=== PATIENT | male | born 1945 | race Caucasian/White ===

== ENCOUNTER 2016-12-12 10:01 | Inpatient (IN) ==
[2016-12-12] MEDS ORDERED: NS 1,000 ML IV ONE ×2 (10:14→10:40)
--- NOTE | 2016-12-12 10:27 | PROVIDER DOCUMENTATION ---
HPI-General Adult - General Chief Complaint: Weakness Stated Complaint: COLD SX Time Seen by Provider: 12/12/16 10:10 Source: patient Unable to obtain history due to:: altered Allergies/Adverse Reactions: Patient Allergies Allergy/AdvReac Type Severity Reaction Status Date / Time Penicillins Allergy SWELLING Verified 09/20/16 08:27 Home Medications: Home Medication List Medication Instructions Recorded Confirmed Last Taken Type Insulin Aspart [Novolog] 1 unit SQ DIRECTED PRN PRN 09/20/16 12/12/16 History Insulin Detemir [Levemir] 80 units SQ WSUPPER 09/20/16 12/12/16 09/20/16 History Levothyroxine [Synthroid] 88 mcg PO DAILY 09/20/16 12/12/16 12/11/16 History Warfarin Sodium [Coumadin] 7.5 mg PO DIRECTED 12/12/16 12/12/16 12/11/16 History Warfarin Sodium [Coumadin] 10 mg PO DIRECTED 12/12/16 12/12/16 12/10/16 History - History of Present Illness -Gen Adult Nature of Presenting Problems: pt presents with SO with 5 day history of worsening generlized weakness, confusion. He started vomiting yesterday. They are both very poor historians. It is unclear how compliant he is with his insulin and coumadin. He denies chest pain, headache, fever, cough, abd pain. Location of Pain/Injury: reports: none Pain Radiation: reports: no radiation Associated Symptoms: reports: fatigue, nausea, vomiting Similar Symptoms Previously?: No Recently seen or treated by another doctor?: No Review of Systems - Adult - REVIEW OF SYSTEMS - ADULT ROS:: limited per condition Constitutional: reports: fatique, weight loss. denies: fever Eyes: reports: no symptoms reported. denies: decreased vision, blurred vision Ears, Nose, Mouth & Throat: reports: no symptoms reported. denies: ear pain, epistaxis Cardiovascular: reports: no symptoms reported. denies: chest pain, syncope Respiratory: reports: no symptoms reported. denies: cough, hemoptysis, shortness of breath Gastrointestinal: reports: no symptoms reported, nausea, vomiting. denies: abdominal pain, diarrhea Genitourinary: reports: no symptoms reported. denies: dysuria Musculoskeletal: reports: no symptoms reported. denies: back pain Integumentary: reports: no symptoms reported. denies: rash Neurological: reports: dizziness/vertigo All Other Systems: Reviewed and Negative Past History - Adult - PAST MEDICAL HISTORY-ADULT Review of Records: reports: Old Records Reviewed, Nursing Assessment Review, Medications Reviewed, Social history reviewed & non-contributory. Major Childhood Illnesses: reports: denies history Cardiovascular: reports: denies history Respiratory: reports: denies history Gastrointestinal: reports: denies history Obstetrical/Gynecological: reports: denies history Genitourinary: reports: denies history Musculoskeletal: reports: denies history Neurological: reports: denies history Endocrine/Immune: reports: Diabetes Other Conditions: reports: denies history Additional History: DVT - IMMUNIZATION STATUS Childhood Immunizations: See Nurse Assessment Flu Vaccine: See Nurse Assessment - FAMILY HISTORY Family History: reviewed, not pertinent Physical Exam-General - PHYSICAL EXAM-ADULT Initial Vital Signs Reviewed: Yes - CONSTITUTIONAL General Appearance: alert, mild distress - EYES Eyes: PERRL/EOMI, pink conjunctivae - HEAD, EARS, NOSE, MOUTH & THROAT HENMT: normocephalic/atraumatic, other (dry membranes) - NECK Neck: non-tender, full range of motion - RESPIRATORY Respiratory: chest non-tender, lungs clear, increased rate - CARDIOVASCULAR Cardiovascular: normal peripheral pulses, tachycardia - GASTROINTESTINAL (ABDOMEN) Abdominal Exam: normal bowel sounds, non tender, soft, no organomegaly, no pulsatile mass. negative: distended, guarding - LYMPHATIC Lymphatic: no adenopathy, axilla node tender - MUSCULOSKELETAL Back Exam: normal inspection, no CVA tenderness Extremity: normal range of motion, non-tender, no calf tenderness Peripheral Pulses: radial (R): 2+ - SKIN Integumentary: normal color, normal turgor, warm/dry - NEUROLOGIC Neurologic: head wood grinder II-XII nml as tested, grossly normal, other (slow to respond.). negative: facial droop, focal weakness, motor weakness - PSYCHIATRIC Psych/Mental Status: oriented x 3 Progress - PLAN OF CARE/RESULTS Progress/Plan/Lab Results: Vital Signs - 8 hr 12/12/16 10:04 Temperature 97.5 F L Pulse Rate 123 H Respiratory Rate 20 Blood Pressure 175/93 O2 Sat by Pulse Oximetry 100 Laboratory Results - last 24 hr 12/12/16 10:18 POC Glucose 398 H D Orders Category Date Time Status Cardiac Monitoring DIRECTED Care 12/12/16 10:14 Active Oxygen Therapy- ED Nursing DIRECTED Care 12/12/16 10:14 Active Saline Loc NOW Care 12/12/16 10:14 Active CHEST-PORTABLE [RAD] Stat Exams 12/12/16 10:14 Ordered ABG [RESP] Routine Lab 12/12/16 10:14 Ordered CBC WITH ELECTRONIC DIFF [HEME] Stat Lab 12/12/16 10:14 Ordered CK PROFILE [SP CHEM] Stat Lab 12/12/16 10:14 Ordered COMPREHENSIVE METABOLIC PANEL [CHEM] Stat Lab 12/12/16 10:14 Ordered MAGNESIUM [CHEM] Stat Lab 12/12/16 10:14 Ordered PRO B-NATRIURETIC PEPTIDE Stat Lab 12/12/16 10:[address] Or[address]IME WITH INR PL [COAG] Stat Lab 12/12/16 10:[address] [COAG] Stat Lab 12/12/16 10:14 Ordered TROPONIN T Stat Lab 12/12/16 10:14 Ordered UA NIMS W/REFLEX CULT [URINALYSIS] Stat Lab 12/12/16 10:14 Uncollected 0.9% Sodium Chloride Inj [Ns] 1,000 ml Med 12/12/16 10:14 Active IV 999 mls/hr EKG [EKG] Stat Ther 12/12/16 10:14 Ordered pt complained of brief episode of cp here but gone now. Result Diagrams: 12/12/16 10:25 12/12/16 10:25 - XRAY 1 XRAY Study: Chest Impression: See EMR Report XRAY Interpretation: cxr ap NAF - CONSULTS/PCP/HOSPITALIST Notification #1 *Consult/PCP/Hospitalist*: vijaya Time Discussed: 12:03 Consult Disposition: Admit Departure - Departure Date of Disposition Decision: 12/12/16 Time of Disposition Decision: 12:04 DIAGNOSIS: DKA (diabetic ketoacidoses) Disposition: ADMITTED INPATIENT 09 Certified Medical Emergency: Emergent Condition: Fair - Critical Care Note This patient required my direct & personal management of CC.: Yes Attestation - Physician/ RIZWAN Attestation Patient care was provided by Advanced Practice Provider:: Yes Advanced Practice Provider:: Efrem Vilchis Advanced Practice Provider documentation review:: The Mid-level provider documentation, treatment plan and medical decision making was reviewed by the physician who agrees with all treatment and medical decision making by the P.
[2016-12-12 10:29] LABS: MANUAL DIFF NEEDED? NO
[2016-12-12 10:32] LABS: BE -27.1 mmoll (-3.0-3.0); BLOOD TYPE ARTERIAL; DRAW SITE L RADIAL; METHB 0.7 % (0.0-1.5); O2(CT) 23.2 mL/dL (15.0-23.0); PO2(98.6) 133 mmHg (60-100); SAMPLE BLOOD; SAO2 98.5 % (95.0-100.0)
[2016-12-12 10:35] LABS: pH(98.6) 6.99 (7.35-7.45)
[2016-12-12 10:36] LABS: ALLEN TEST YES; MODALITY ROOM AIR; PCO2(98.6) 10 mmHg (35-45)
[2016-12-12] MEDS ORDERED: SODIUM BICARBONATE 8.4% IV PUSH ONE (10:36)
--- NOTE | 2016-12-12 10:44 | EKG Report ---
Test Performed on : 12/12/2016 10:38:12 AM Test Reason : WEAKNESS Blood Pressure : / mmHG Vent. Rate : 120 BPM Atrial Rate : 120 BPM P-R Int : 130 ms QRS Dur : 080 ms QT Int : 352 ms P-R-T Axes : 049 032 045 degrees QTc Int : 497 ms Sinus tachycardia. Possible Left atrial enlargement Nonspecific ST and T wave abnormality Abnormal ECG When compared with ECG of 20-SEP-2016 09:20, premature ventricular complexes. are no longer present ST now depressed in Anterior leads T wave inversion now evident in Lateral leads Unconfirmed Result
[2016-12-12] MEDS ORDERED: HUMULIN R (PARKWAY) 100 UNITS in NS 100 ML IV SCH (10:45)
[2016-12-12 10:53] LABS: BASO% 0.2 % (0.0-0.8); EOS# 0.03 X1000 (0.0-0.7); EOS% 0.2 % (0.0-10.0); HEMOGLOBIN 17.2 g/dL (14.0-18.0); IMM GRAN# 0.11 X1000 (0.0-0.04); IMM GRAN% 0.9 % (0.0-0.5); LYMPH% 10.3 % (20.5-51.1); MCHC 32.5 g/dL (33-37); MCV 86.2 FL (81-99); MONO# 0.44 X1000 (0.11-0.59); MONO% 3.5 % (1.7-9.3); MPV 10.8 FL (7.4-10.4); NEUT% 84.9 % (42.2-75.2); PLT 366 X1000 (130-400); RBC 6.15 XMIL (4.7-6.1)
--- NOTE | 2016-12-12 10:53 | Diag Imaging Result Doc PS360 ---
EXAM: CHEST-PORTABLE HISTORY: dyspnea TECHNIQUE: Portable AP COMPARISON: 09/20/2016 FINDINGS: The lungs are well expanded. The heart is not enlarged. The vessels are not distended. No pneumonia. No pleural effusions identified. IMPRESSION: Negative chest. Electronically signed by Chris Nieves 12/12/2016 10:50 AM
[2016-12-12] MEDS ORDERED: ASPIRIN PO ONE (10:55)
[2016-12-12] MEDS ORDERED: ASPIRIN ONE (10:56)
--- NOTE | 2016-12-12 10:59 | ED EKG INTERP ---
This chart was entered by Ana Cristina Pedroza Scribe, acting as scribe for Joan Elizondo MD. EKG Interpretation - EKG Time of EKG reading by physician:: 10:38 EKG Read and Signed by:: Joan Elizondo EKG Interpretation (*Must complete 3 of following elements*): Abnormal Rate: 120 Rhythm: sinus tachycardia DE Interval: prolonged ST Wave: non-specific ST changes Comments: possible L atrial enlargement; nonspecific ST and T wave abnormality This chart was documented by the indicated scribe, (Ana Cristina Pedroza Scribe) and accurately reflects the services I performed and decisions made by me, Joan Elizondo MD, as attested by the provider's signature.
[2016-12-12] MEDS ORDERED: ZOFRAN IV ONE (11:11)
[2016-12-12 11:19] LABS: INR 3.81 (0.86-1.15); PROTIME 37.2 Seconds (12.1-15.5)
[2016-12-12 11:26] LABS: ALBUMIN 5.4 g/dL (3.5-5.0); CALCIUM 9.8 mg/dL (8.8-10.2); MAGNESIUM 2.4 mg/dL (1.5-2.7); POTASSIUM 6.1 mmol/L (3.5-5.1); TOTAL BILIRUBIN 0.3 mg/dL (0.20-1.00)
[2016-12-12] MEDS ORDERED: HUMULIN R IV ONE (11:29)
[2016-12-12] MEDS ORDERED: HUMULIN R (PARKWAY) ONE (11:36)
[2016-12-12 12:22] LABS: URINE CULTURE PL NEEDED? NO
[2016-12-12] MEDS ORDERED: NS 1,000 ML IV SCH (12:28)
[2016-12-12 12:37] LABS: BILIRUBIN URINE NEGATIVE (NEGATIVE); BLOOD URINE 1+ (NEGATIVE); CLARITY CLEAR (CLEAR); COLOR YELLOW; LEUKOCYTES URINE NEGATIVE (NEGATIVE); NITRITE URINE NEGATIVE (NEGATIVE); PROTEIN URINE TRACE mg/dL (NEGATIVE); UROBILINOGEN URINE NORMAL
[2016-12-12 12:38] LABS: URINE EPITHELIAL CELLS <10 /HPF (<10); URINE RBC <10 /HPF (<10); URINE SOURCE CLEAN CATCH
[2016-12-12] MEDS ORDERED: SODIUM PHOSPHATE 30 MMOL in D5W 250 ML IV PRN (13:58)
[2016-12-12] MEDS ORDERED: HUMULIN R 100 UNIT in NS 99 ML IV SCH (13:58)
[2016-12-12] MEDS ORDERED: D50W SYRINGE IV PRN (13:58)
[2016-12-12 14:18] LABS: BE -24.4 mmoll (-3.0-3.0); BLOOD TYPE ARTERIAL; DRAW SITE L RADIAL; O2(CT) 21.2 mL/dL (15.0-23.0); PO2(98.6) 146 mmHg (60-100); SAMPLE BLOOD; SAO2 98.7 % (95.0-100.0); THB 15.4 g/dL (11.5-17.4)
[2016-12-12 14:29] LABS: pH(98.6) 7.07 (7.35-7.45)
[2016-12-12 14:32] LABS: MODALITY CANNULA; PCO2(98.6) 12 mmHg (35-45)
[2016-12-12 14:33] LABS: ALLEN TEST YES
[2016-12-12 14:39] LABS: HEMATOCRIT 47.8 % (42.0-52.0); HEMOGLOBIN 15.1 g/dL (14.0-18.0); MCH 28.4 PG (27-31); MCHC 31.6 g/dL (33-37); RBC 5.31 XMIL (4.7-6.1)
[2016-12-12] MEDS: NS 1,000 ML IV SCH ×3 (14:49→23:23)
[2016-12-12 14:51] LABS: CALCIUM 8.8 mg/dL (8.8-10.2); MAGNESIUM 2.1 mg/dL (1.5-2.7); POTASSIUM 5.1 mmol/L (3.5-5.1)
[2016-12-12] MEDS ORDERED: M.V.I.-12 10 ML, FOLIC ACID 1 MG, MAGNESIUM SULFATE 1 GM, THIAMINE 100 MG in NS 1,000 ML IV ONE (15:30)
[2016-12-12 15:45] LABS: ALBUMIN 5.5 g/dL (3.5-5.0)
[2016-12-12 18:23] LABS: CALCIUM 8.9 mg/dL (8.8-10.2); MAGNESIUM 2.1 mg/dL (1.5-2.7); POTASSIUM 4.7 mmol/L (3.5-5.1)
[2016-12-12 22:37] LABS: AGAP 19; BUN 22 mg/dL (8-22); CALCIUM 8.4 mg/dL (8.8-10.2); CHLORIDE 111 mmol/L (98-107); COSMO 289; POTASSIUM 4.3 mmol/L (3.5-5.1); SODIUM 140 mmol/L (136-145); TCO2 10 mmol/L (25-35)
[2016-12-13 03:22] LABS: AGAP 15; BUN 20 mg/dL (8-22); CALCIUM 8.2 mg/dL (8.8-10.2); CHLORIDE 116 mmol/L (98-107); COSMO 294; POTASSIUM 3.8 mmol/L (3.5-5.1); SODIUM 143 mmol/L (136-145); TCO2 12 mmol/L (25-35)
[2016-12-13] MEDS: NS 1,000 ML IV SCH ×7 (04:17→21:58)
[2016-12-13] MEDS: SYNTHROID PO SCH (06:05)
[2016-12-13 06:07] LABS: BE -11.1 mmoll (-3.0-3.0); BLOOD TYPE ARTERIAL; DRAW SITE R BRACHIAL; METHB 1.1 % (0.0-1.5); PCO2(98.6) 28 mmHg (35-45); PO2(98.6) 92 mmHg (60-100); SAMPLE BLOOD; THB 13.3 g/dL (11.5-17.4)
[2016-12-13 06:09] LABS: MODALITY CANNULA
[2016-12-13 06:35] LABS: AGAP 15; BUN 19 mg/dL (8-22); CALCIUM 8.2 mg/dL (8.8-10.2); CHLORIDE 113 mmol/L (98-107); COSMO 290; POTASSIUM 3.6 mmol/L (3.5-5.1); SODIUM 141 mmol/L (136-145); TCO2 14 mmol/L (25-35)
--- NOTE | 2016-12-13 09:04 | PROGRESS NOTE ---
DATE: 12/13/2016 SUBJECTIVE: The patient states he is starting to feel a little bit better. He is having less nausea. He denies any vomiting and denies abdominal pain. Denies any fevers or chills. PHYSICAL: Temperature 97, pulse 103, respiratory 17, BP 126/74, sat 99% on room air. General: The patient is awake, alert, currently in no real respiratory distress. He is pleasant to talk with. Neck supple. CV: Regular rate. Chest: Relatively clear. Abdomen: Soft, nondistended, nontender. Extremities: Moves all extremities. LABORATORY DATA: Chloride 113, bicarb 14 which is improved from 5 on admission. Glucose 213, phosphorus 1.5, calcium 8.2, creatinine 1.0 m. ASSESSMENT: 1. Diabetic ketoacidosis. 2. Hypophosphatemia. 3. Hypocalcemia. 4. Leukocytosis. 5. Nausea and vomiting. 6. Hypothyroidism. PLAN: We will continue to keep on clear liquids as tolerated. We will continue insulin drip until his carbon dioxide is greater than 18 and then we will advance diet. Further orders as needed. Discussed with patient the perils of starvation ketosis, which I do believe is what triggered his diabetic ketoacidosis. Patient had been intentionally only drinking liquids with an attempt to lose weight. cc: Chong Brown MD
[2016-12-13 11:22] LABS: AGAP 15; BUN 17 mg/dL (8-22); CALCIUM 8.4 mg/dL (8.8-10.2); CHLORIDE 113 mmol/L (98-107); COSMO 289; POTASSIUM 3.6 mmol/L (3.5-5.1); SODIUM 141 mmol/L (136-145); TCO2 13 mmol/L (25-35)
[2016-12-13 14:02] LABS: AGAP 13; BUN 14 mg/dL (8-22); CALCIUM 7.9 mg/dL (8.8-10.2); CHLORIDE 109 mmol/L (98-107); COSMO 286; MAGNESIUM 1.8 mg/dL (1.5-2.7); POTASSIUM 3.4 mmol/L (3.5-5.1); SODIUM 137 mmol/L (136-145); TCO2 15 mmol/L (25-35)
[2016-12-13 18:08] LABS: AGAP 13; BUN 10 mg/dL (8-22); CHLORIDE 110 mmol/L (98-107); COSMO 282; MAGNESIUM 1.8 mg/dL (1.5-2.7); POTASSIUM 3.3 mmol/L (3.5-5.1); SODIUM 138 mmol/L (136-145); TCO2 15 mmol/L (25-35)
[2016-12-13 21:47] LABS: AGAP 12; BUN 8 mg/dL (8-22); CALCIUM 7.9 mg/dL (8.8-10.2); CHLORIDE 110 mmol/L (98-107); COSMO 280; MAGNESIUM 1.7 mg/dL (1.5-2.7); POTASSIUM 3.2 mmol/L (3.5-5.1); SODIUM 138 mmol/L (136-145); TCO2 16 mmol/L (25-35)
[2016-12-13] MEDS: MAGNESIUM SULFATE 2 GM/S.W.I. 2 GM/50 ML IVPB IV PRN (21:58)
[2016-12-14 01:23] LABS: AGAP 13; BUN 6 mg/dL (8-22); CALCIUM 7.6 mg/dL (8.8-10.2); CHLORIDE 105 mmol/L (98-107); COSMO 273; POTASSIUM 2.8 mmol/L (3.5-5.1); SODIUM 135 mmol/L (136-145); TCO2 16 mmol/L (25-35)
[2016-12-14] MEDS: NS 1,000 ML IV SCH ×9 (01:28→20:15)
[2016-12-14] MEDS: SYNTHROID PO SCH (06:17)
[2016-12-14 06:39] LABS: AGAP 12; BUN 6 mg/dL (8-22); CALCIUM 7.8 mg/dL (8.8-10.2); CHLORIDE 110 mmol/L (98-107); COSMO 280; MAGNESIUM 1.9 mg/dL (1.5-2.7); POTASSIUM 2.9 mmol/L (3.5-5.1); SODIUM 139 mmol/L (136-145); TCO2 17 mmol/L (25-35)
[2016-12-14 06:42] LABS: HEMATOCRIT 36.2 % (42.0-52.0); HEMOGLOBIN 12.2 g/dL (14.0-18.0); MCH 28.6 PG (27-31); MCHC 33.7 g/dL (33-37); MCV 84.8 FL (81-99); MPV 10.9 FL (7.4-10.4); RBC 4.27 XMIL (4.7-6.1)
[2016-12-14 09:13] LABS: AGAP 11; BUN 4 mg/dL (8-22); CALCIUM 7.9 mg/dL (8.8-10.2); CHLORIDE 108 mmol/L (98-107); COSMO 277; MAGNESIUM 1.7 mg/dL (1.5-2.7); POTASSIUM 2.7 mmol/L (3.5-5.1); SODIUM 138 mmol/L (136-145); TCO2 19 mmol/L (25-35)
[2016-12-14 13:03] LABS: AGAP 12; BUN 3 mg/dL (8-22); CALCIUM 7.7 mg/dL (8.8-10.2); CHLORIDE 108 mmol/L (98-107); COSMO 277; MAGNESIUM 1.7 mg/dL (1.5-2.7); POTASSIUM 2.7 mmol/L (3.5-5.1); SODIUM 138 mmol/L (136-145); TCO2 18 mmol/L (25-35)
[2016-12-14] MEDS: HUMALOG DOSE (PARKWAY) SUBQ SCH ×2 (15:00→20:32)
--- NOTE | 2016-12-14 15:12 | HISTORY AND PHYSICAL ---
CHIEF COMPLAINT: Weakness and confusion and vomiting. HISTORY OF PRESENT ILLNESS: This is a 71-year-old male with a history of hyperlipidemia, COPD and diabetes mellitus who presents to the emergency room with his who states the patient has had increasing weakness and confusion over the last 5 days and in the last 24 hours he started vomiting. She is unsure about his compliance to medicines. She does state that he decided that he needed to lose weight and he started taking in just liquids. It has been about 6 weeks ago some days having only juice and water. She is unaware of him eating any solid food during this time. He is noted to have a blood sugar of 589 with a potassium of 6.1, a CO2 of 5. He was given 2 L of saline as well as bicarb with an insulin drip initiated in the emergency room. He is being admitted to ICU for further evaluation and treatment. PAST MEDICAL HISTORY: Diabetes mellitus, hyperlipidemia, COPD, prior DVT and PE. PAST SURGICAL HISTORY: Finger surgery. SOCIAL HISTORY: Denies alcohol, tobacco or illicit drug use. He does live at home with his . ALLERGIES: Penicillin which causes swelling. HOME MEDICATIONS: Warfarin 7.5 and 10 mg alternating, Synthroid 88 mcg daily, Levemir 80 units daily with supper, NovoLog 1 unit subcu as directed. REVIEW OF SYSTEMS: Unable to obtain from the patient. PHYSICAL EXAMINATION: GENERAL: This is a 71-year-old male who is lying in the bed in mild distress. HEENT: Head is normocephalic, atraumatic. Pupils are equal, round, react to light. EOMs are intact. Sclerae anicteric. Mucous membranes are dry. NECK: Supple with trachea midline. CARDIOVASCULAR: Regular rate and rhythm. He is tachycardic. S1 and S2 appreciated. PULMONARY: Breath sounds are clear with Kussmaul breathing. Chest rise and fall is symmetrical. GASTROINTESTINAL: Abdomen soft, nontender, nondistended with bowel sounds in all 4 quadrants. MUSCULOSKELETAL: Good range of motion of joints. EXTREMITIES: No clubbing, cyanosis, or edema. Pulses are palpable x4. NEUROLOGIC: He is confused. Speech is slurred. DIAGNOSTICS: WBC is 12.5 with hemoglobin 17.2, hematocrit 53 and platelets of 366,000. INR is 3.8. ABGs pH is 6.99 with a pCO2 of 10, PO2 of 133 and bicarb of 3.7. Sodium is 135, potassium 6.1, CO2 5, BUN 28, creatinine 1.6 with a glucose of 589. ASSESSMENT AND PLAN: 1. Diabetic ketoacidosis. 2. Starvation ketosis. 3. Leukocytosis. 4. Nausea and vomiting. 5. Confusion. PLAN: The patient will be admitted to ICU. He will be NPO at present with neuro checks. Will continue IV hydration as well as an insulin drip and follow per protocol. We will monitor electrolytes and replete as appropriate. Will hold him NPO until CO2 gets up greater than 18 and we can start with liquids and advance his diet. Further treatments pending hospital course. Dictated by ELENA Gupta for Chong Brown MD cc: ELENA Gupta MD
[2016-12-14] MEDS: MAGNESIUM SULFATE 2 GM/S.W.I. 2 GM/50 ML IVPB IV PRN (17:09)
[2016-12-14 18:48] LABS: INR 1.7 (0.86-1.15); PROTIME 20.2 Seconds (12.1-15.5)
[2016-12-14] MEDS: COUMADIN PO SCH (20:32)
[2016-12-15] MEDS: NS 1,000 ML IV SCH ×2 (00:58→06:07)
[2016-12-15] MEDS: SYNTHROID PO SCH (06:06)
[2016-12-15] MEDS: HUMALOG DOSE (PARKWAY) SUBQ SCH ×2 (06:07→12:11)
[2016-12-15 06:29] LABS: INR 1.61 (0.86-1.15); PROTIME 19.4 Seconds (12.1-15.5)
[2016-12-15 06:42] LABS: AGAP 17; BUN 5 mg/dL (8-22); CALCIUM 8.1 mg/dL (8.8-10.2); CHLORIDE 102 mmol/L (98-107); COSMO 273; MAGNESIUM 1.9 mg/dL (1.5-2.7); POTASSIUM 3.1 mmol/L (3.5-5.1); SODIUM 133 mmol/L (136-145); TCO2 14 mmol/L (25-35)
[2016-12-15] MEDS ORDERED: KLOR-CON PO ONE (11:28)
--- NOTE | 2016-12-15 12:22 | PROGRESS NOTE ---
DATE: 12/14/2016 SUBJECTIVE: Patient is starting to feel a bit better. He is still having some nausea and vomiting. Denies any blood in his stool. Denies any dysuria, frequency, or urgency. OBJECTIVE: Vital Signs: Reviewed and stable. HEENT: Normocephalic, atraumatic. Neck: Supple. Cardiovascular: Regular rate. Chest: Relatively clear. Abdomen: Soft. Extremities: Moves all extremities. Neurologic: No changes. Skin: Warm and dry. No rashes. LABORATORIES: INR is 1.7. Hemoglobin and hematocrit 12 and 36. Potassium 2.7, glucose 317, phosphorus 1.3. ASSESSMENT: 1. Diabetic ketoacidosis. 2. Hypophosphatemia. 3. Hypocalcemia. 4. Hypokalemia. PLAN: We will continue patient on insulin drip today. We will continue to advance his diet as tolerated. He certainly is exhibiting some starvation ketosis of his own volition, as he has refused to eat at home. He has only been drinking. Leukocytosis has improved. His nausea and vomiting has improved. His confusion has resolved and he is back to his baseline mental status. We will continue to follow. Further orders as needed. cc: Chong Brown MD
[2016-12-15] MEDS ORDERED: LEVEMIR INSULIN *HA SUBQ SCH (17:00)
[2016-12-15 18:32] LABS: AGAP 19; ALBUMIN 3.4 g/dL (3.5-5.0); ALKALINE PHOSPHATASE 80 U/L (32-122); BUN 8 mg/dL (8-22); CALCIUM 8.4 mg/dL (8.8-10.2); CHLORIDE 103 mmol/L (98-107); COSMO 287; GOT 13 U/L (10-34); GPT 10 U/L (10-44); POTASSIUM 3.6 mmol/L (3.5-5.1); SODIUM 136 mmol/L (136-145); TCO2 14 mmol/L (25-35); TOTAL PROTEIN 5.5 g/dL (6.3-8.3)
--- NOTE | 2016-12-15 18:42 | PROGRESS NOTE ---
DATE: 12/15/2016 SUBJECTIVE: The patient notes that he is starting to feel better. He is starting to eat and drink better. Denies any chest pain, palpitations. Denies any fevers or chills currently. PHYSICAL: Temp 98.2 degrees, pulse 86-106, respiratory 25, BP 138/99, sat 95% on room air.General: Patient is awake, alert. He is currently in no respiratory distress. Appears back to his baseline mentation. HEENT: Normocephalic, atraumatic. MARIBETH. Neck: Supple. CV: Regular rate. Chest: Clear. Abdomen: Soft, nondistended, nontender. No masses. Extremities: Moves all extremities. Neurologic: No changes. LABS: Sodium 133, potassium 3.1, glucose 264 .phosphorus improved to 2.4. ASSESSMENT: 1. DKA, currently improving. Will stop his insulin drip. Will place him on a sliding scale insulin as well as Levemir. We will continue to follow. We will restart his home medications of Coumadin and levothyroxine. We will recheck his labs in the a.m. Hopefully home soon. His phosphorus is continuing to improve. INR still low 1.6 but he has been off of his Coumadin recently. 2. Hypokalemia. Will replace as well. cc: Chong Brown MD
[2016-12-15] MEDS ORDERED: HUMALOG DOSE (PARKWAY) SUBQ SCH (21:00)
[2016-12-15] MEDS ORDERED: D50W SYRINGE IV PRN (21:01)
[2016-12-15] MEDS ORDERED: HUMULIN R (PARKWAY) 100 UNITS in NS 100 ML IV SCH (21:01)
[2016-12-15] MEDS ORDERED: KLOR-CON PO PRN (21:06)
[2016-12-15] MEDS ORDERED: MAGNESIUM SULFATE 2 GM/S.W.I. 2 GM/50 ML IVPB IV PRN (21:06)
[2016-12-15] MEDS ORDERED: SODIUM PHOSPHATE 30 MMOL in D5W 250 ML IV PRN (21:06)
[2016-12-15] MEDS ORDERED: NS 1,000 ML IV SCH (21:06)
[2016-12-15] MEDS ORDERED: NS 100 ML ONE (21:07)
[2016-12-15] MEDS: COUMADIN PO SCH (21:16)
[2016-12-15 22:28] LABS: AGAP 19; BUN 10 mg/dL (8-22); CALCIUM 8.5 mg/dL (8.8-10.2); CHLORIDE 105 mmol/L (98-107); COSMO 287; MAGNESIUM 1.7 mg/dL (1.5-2.7); POTASSIUM 3.6 mmol/L (3.5-5.1); SODIUM 137 mmol/L (136-145); TCO2 14 mmol/L (25-35)
[2016-12-16 02:28] LABS: AGAP 17; BUN 9 mg/dL (8-22); CALCIUM 8.6 mg/dL (8.8-10.2); CHLORIDE 106 mmol/L (98-107); COSMO 282; MAGNESIUM 2.2 mg/dL (1.5-2.7); POTASSIUM 3.1 mmol/L (3.5-5.1); SODIUM 140 mmol/L (136-145); TCO2 17 mmol/L (25-35)
[2016-12-16] MEDS: KLOR-CON PO PRN ×2 (02:40→08:02)
[2016-12-16 06:22] LABS: HEMATOCRIT 38.7 % (42.0-52.0); HEMOGLOBIN 13.4 g/dL (14.0-18.0); MCH 28.8 PG (27-31); MCHC 34.6 g/dL (33-37); MCV 83.2 FL (81-99); MPV 10.4 FL (7.4-10.4); RBC 4.65 XMIL (4.7-6.1)
[2016-12-16 06:25] LABS: INR 1.88 (0.86-1.15); PROTIME 21.8 Seconds (12.1-15.5)
[2016-12-16] MEDS: SYNTHROID PO SCH (06:26)
[2016-12-16 06:34] LABS: HEMOGLOBIN A1C 10.6 % (4.8-6.0)
[2016-12-16 06:58] LABS: AGAP 14; ALBUMIN 3.6 g/dL (3.5-5.0); ALKALINE PHOSPHATASE 74 U/L (32-122); BUN 8 mg/dL (8-22); CALCIUM 8.8 mg/dL (8.8-10.2); CHLORIDE 108 mmol/L (98-107); COSMO 280; GOT 13 U/L (10-34); GPT 11 U/L (10-44); MAGNESIUM 1.9 mg/dL (1.5-2.7); POTASSIUM 3.3 mmol/L (3.5-5.1); SODIUM 141 mmol/L (136-145); TCO2 19 mmol/L (25-35); TOTAL PROTEIN 6.8 g/dL (6.3-8.3)
[2016-12-16] MEDS ORDERED: SYNTHROID PO ONE ×2 (09:45→11:15)
[2016-12-16] MEDS ORDERED: LANTUS INSULIN (PARKWAY) SUBQ SCH ×2 (09:45→11:15)
--- NOTE | 2016-12-16 14:01 | PROGRESS NOTE ---
DATE: 12/16/2016 SUBJECTIVE: Patient is starting to feel better. Denies any current nausea, vomiting. Denies any abdominal pain. States that he is ready to start eating. OBJECTIVE: Vital signs: Temperature 97, pulse 80, respiratory 18, BP 155/95, saturation 97% on room air. General: Patient is awake, alert, oriented. He is currently in no real respiratory distress. He is lying flat in the bed. HEENT: Normocephalic, atraumatic. MARIBETH. Neck: Supple. CV: Regular rate. Chest: Clear. Abdomen: Soft. Extremities: Moves all extremities. Neurologic: No focal changes. LABS: CBC normal. INR 1.8. Potassium 3.1. Phosphorus 2.0. TSH 6.72. ASSESSMENT: 1. Diabetic ketoacidosis. Appears resolved. His gap has closed. Bicarb has returned to normal. Will stop his insulin drip. Will place him on Lantus this a.m. and will follow. He was taking 80 units at home. We will decrease to 30 units twice a day. 2. Hypothyroidism. Will increase his Synthroid. 3. Medical noncompliance. His INR is low. 4. We will increase his Coumadin. Certainly suspect what he is actually taking at home as his INR has frequently bounced from mid 1s to upper 3s on each test at home. We will advance his diet and continue to follow. cc: Chong Brown MD
[2016-12-16 15:06] LABS: AGAP 13; BUN 9 mg/dL (8-22); CALCIUM 8.6 mg/dL (8.8-10.2); CHLORIDE 104 mmol/L (98-107); COSMO 282; MAGNESIUM 1.6 mg/dL (1.5-2.7); POTASSIUM 3.8 mmol/L (3.5-5.1); SODIUM 136 mmol/L (136-145); TCO2 20 mmol/L (25-35)
[2016-12-16] MEDS: HUMALOG DOSE (PARKWAY) SUBQ SCH ×2 (16:16→21:21)
[2016-12-16] MEDS ORDERED: COUMADIN PO SCH (21:00)
[2016-12-16] MEDS: LANTUS INSULIN (PARKWAY) SUBQ SCH (21:22)
[2016-12-17 04:37] LABS: HEMATOCRIT 37.3 % (42.0-52.0); HEMOGLOBIN 12.5 g/dL (14.0-18.0); MCH 28.2 PG (27-31); MCHC 33.5 g/dL (33-37); MPV 10.5 FL (7.4-10.4); RBC 4.44 XMIL (4.7-6.1)
[2016-12-17 04:40] LABS: INR 2.15 (0.86-1.15); PROTIME 24.1 Seconds (12.1-15.5)
[2016-12-17 05:16] LABS: AGAP 11; BUN 8 mg/dL (8-22); CALCIUM 9.1 mg/dL (8.8-10.2); CHLORIDE 102 mmol/L (98-107); COSMO 277; MAGNESIUM 1.5 mg/dL (1.5-2.7); POTASSIUM 3.4 mmol/L (3.5-5.1); SODIUM 137 mmol/L (136-145); TCO2 24 mmol/L (25-35)
[2016-12-17] MEDS: HUMALOG DOSE (PARKWAY) SUBQ SCH (06:24)
[2016-12-17] MEDS ORDERED: SYNTHROID PO SCH (07:00)
[2016-12-17] MEDS: LANTUS INSULIN (PARKWAY) SUBQ SCH (08:51)
[2016-12-17 09:51] VITALS: BP 139/98
[2016-12-17 15:33] LABS: ALLEN TEST NO
--- NOTE | 2016-12-18 12:51 | DISCHARGE SUMMARY ---
ADMISSION DATE: 12/12/2016 DISCHARGE DATE: 12/17/2016 The patient notes that he is feeling much better. He is sitting up in a chair. He is eating breakfast without any difficulty. DISCHARGE DIAGNOSES: 1. Diabetic ketoacidosis, resolved. 2. Starvation ketosis, improving. 3. Leukocytosis, resolved. 4. Nausea and vomiting, resolved. 5. Confusion, resolved. 6. Chronic medical noncompliance. 7. Hypercoagulable improved. 8. Hypophosphatemia, resolved. 9. Hypokalemia, resolved. 10. Hypocalcemia, resolved. 11. Hypothyroidism, improved with increasing Synthroid. CONSULTATIONS: None. PROCEDURES: None. BRIEF HOSPITAL COURSE: Patient is a 71-year-old male, who unfortunately has a long-standing history of noncompliance medically, as well as dietary for his diabetes. He had been on a liquid diet for the past month prior to coming in the hospital and had not been checking his blood sugars. His INR, as expected, had been bouncing up and down. He presented to the hospital confused, disoriented and was subsequently diagnosed ketotic. This was secondary to starvation, as well as diabetes. He was placed in ICU on an insulin drip. Continued to improve slowly. He eventually was weaned off the drip. His potassium, magnesium and calcium were all easily replaced. DISPOSITION: Patient is awake alert, oriented. He is in no distress currently. He is sitting up eating breakfast. Discussed with patient the perils of not maintaining a steady diet with his diabetes. His Synthroid was increased to 88. Lantus was changed to 30 units twice a day. Coumadin was maintained at 10 mg Saturday, Saturday, Saturday, Saturday and 7.5 Saturday, Saturday, . TIME SPENT: 35 minutes was spent in discharge planning and instructions. cc: Chong Brown MD
== END 2016-12-17 10:00 | disposition home health service (06) ==
LOC: P.ED 10:01 → P.ICU 12:26
PROVIDERS: ADMIT Family Medicine; ATTEND Family Medicine

== ENCOUNTER 2018-12-30 07:59 | Inpatient (IN) ==
[2018-12-30] MEDS: VANCOMYCIN 1 GM/NS 1 GM/250 ML IVPB ONE ×2 (08:00→10:25)
[2018-12-30] MEDS ORDERED: LR 1,000 ML ONE (08:45)
[2018-12-30] MEDS ORDERED: FENTANYL ONE (09:37)
[2018-12-30] MEDS ORDERED: DIPRIVAN 1% ONE (09:38)
[2018-12-30] MEDS ORDERED: XYLOCAINE-MPF 2% ONE (09:38)
[2018-12-30] MEDS ORDERED: MARCAINE 0.25% PF/EPI 1:200,000 ONE (11:06)
[2018-12-30] MEDS ORDERED: XYLOCAINE 1% ONE (11:06)
[2018-12-30] MEDS ORDERED: LR 500 ML ONE (12:07)
[2018-12-30] MEDS: DILAUDID ONE ×4 (12:09→12:29)
[2018-12-30] MEDS ORDERED: VANCOMYCIN IV PER PHARMACY MISC SCH (12:55)
[2018-12-30] MEDS ORDERED: ZOFRAN IV PRN (12:55)
[2018-12-30] MEDS ORDERED: LEVAQUIN 500 MG/D5W 500 MG/100 ML IVPB IV SCH (13:00)
[2018-12-30] MEDS: FLAGYL 500 MG/NS 500 MG/100 ML IVPB IV SCH ×2 (13:26→23:36)
[2018-12-30] MEDS: NORCO-7.5 PO PRN ×3 (13:26→21:54)
--- NOTE | 2018-12-30 15:40 | CONSULTATION ---
DATE OF CONSULTATION: 12/30/2018 CHIEF COMPLAINT: This is a medical consultation for diabetes management at the request of attending. HISTORY OF PRESENTING ILLNESS: This is a 73-year-old male who was admitted to [facility] today by General Surgery after having a toe amputation on his right foot. I do not have operative notes to know exactly which toe it is. He has a dressing in place currently. States that he saw all Dr. Sánchez, General Surgeon, in an outpatient setting and was found to have osteomyelitis of the diabetic toe and had possibly broken this toe, so he came in for toe amputation. When he arrived his blood sugar this morning was 207 by fingerstick. At lunchtime today it was 153. So we will follow the patient throughout hospitalization. PAST MEDICAL HISTORY: Diabetes type 2, hyperlipidemia, COPD, a prior DVT and PE, and noncompliance. PAST SURGICAL HISTORY: Finger surgery. FAMILY HISTORY: Reviewed and noncontributory. SOCIAL HISTORY: He lives with family. Denies any tobacco, alcohol, or illicit drug use. ALLERGIES: Penicillin. HOME MEDICATIONS: We will obtain a current list and restart as appropriate after they are reconciled. LABORATORY DATA: No labs have been obtained at this time. He does have a fingerstick blood sugar on arrival that was 207 and one at 12 noon that was 153. REVIEW OF SYSTEMS: He denies any fever, chills, blurred vision, dizziness, chest pain, coughing, or shortness of breath. Denies any abdominal pain, constipation, diarrhea, burning, or hurting with urination. Denies any current pain to his right foot status post toe amputation. PHYSICAL EXAMINATION: vital signs: On arrival he had a temperature of 98.1 degrees, pulse 87, respirations 18, blood pressure 119/82, saturating 99% on room air. General: This is a 73-year- old male who is sitting up in the bed and answers questions appropriately. HEENT: Normocephalic, atraumatic. Normal ENT inspection. Oropharynx and nares are clear. Eyes: Pupils are equal, round, and reactive to light and accommodation. Extraocular movements are intact. Neck: Normal inspection. Normal range of motion. Lungs: Clear to auscultation bilaterally with equal lung expansion and chest wall movement. Heart: Regular rate and rhythm. No murmurs, rubs, or gallops. Abdomen: Soft, nontender, nondistended. Bowel sounds are present x4 quadrants. Musculoskeletal: He has 5/5 strength x4 extremities. He does have a dressing that is dry and intact to his right foot status post toe amputation today. Did not remove the dressing at this time. Neurological: The cranial nerves II through XII appear grossly intact. ASSESSMENT: 1. Diabetic foot infection with possible osteomyelitis, status post amputation today. 2. Diabetes type 2. 3. Chronic obstructive pulmonary disease, history of. 4. Hyperlipidemia. 5. Medical noncompliance. PLAN: We will follow along during this patient's hospitalization to monitor any medical problems that do include his uncontrolled diabetes. He is on a diabetic diet. He is on Flagyl 500 mg IV q. 6, Levaquin 500 IV q. 24, and vancomycin per pharmacy protocol. We will place him on pattern blood sugars with sliding scale insulin. We will confirm all home medications and restart those as appropriate. I appreciate this consult. Further orders after seen by attending and by siebel consultant. Dictated by ELENA Salamanca for Jose Francisco Irving MD cc: ELENA Salamanca MD R. Tyler Harney, MD
[2018-12-30] MEDS ORDERED: INSULIN PEN NEEDLES ONE (15:51)
[2018-12-30] MEDS: HUMALOG SUBQ SCH ×2 (17:50→23:37)
[2018-12-30] MEDS: GLUCOPHAGE PO SCH (17:52)
--- NOTE | 2018-12-30 19:46 | OPERATIVE NOTE ---
PROCEDURE DATE: 12/30/2018 PREOPERATIVE DIAGNOSES: 1. Necrosis of right second toe. 2. Diabetic foot infection. POSTOPERATIVE DIAGNOSES: 1. Necrosis of right second toe. 2. Diabetic foot infection. PROCEDURE PERFORMED: Transmetatarsal amputation of the right second toe with excisional debridement of medial right foot wound 4 x 4 cm down to the level of the bone and tendon. ANESTHESIA: General. SPECIMENS: 1. Right second toe. 2. Metatarsal head for bone culture. 3. Wound cultures. OPERATIVE NOTE: Risks, benefits and alternatives were discussed with patient who consented for the procedure, seen preoperatively and surgical site was confirmed and marked. She was taken to the operating room and placed in supine position. General anesthesia induced without complication. All bony prominences were padded. His right foot was prepped with Betadine and draped in usual fashion. After time-out, elliptical incision was made to include the second toe. We carried this down through the distal metatarsal joint. We noted abnormalities of bone, moth- eaten changes and possibly even a pathologic fracture at this location. We used a periosteal elevator, and using a bone-cutter and rongeur forceps, we performed a transmetatarsal amputation of the distal metatarsal. Irrigated the wound, noted hemostasis. There was good pulsatile bleeding noted in the soft tissues. We then performed an excisional debridement of the more medial foot wound, excising some necrotic eschar here. Overall, we felt we had adequate bleeding. There was some purulence noted upon incision in the skin. We cultured the wound. We irrigated the wound, lavaged and applied a Vashe dressing and an Jules wrap. He tolerated it well, was awakened and transferred to recovery. We will admit her for IV antibiotics. We will ask ID and the hospitalist to evaluate the patient. cc: Kika Sánchez MD
--- NOTE | 2018-12-30 20:01 | CONSULTATION ---
DATE OF CONSULTATION: 12/30/2018 ADDENDUM: This is a 73-year-old male patient of Dr. Brown, I believe, who came in for osteomyelitis, diabetic chronic wound. Operated on by Dr. Sánchez for resection of osteomyelitis and cleaning up of the wound. We are consulted for medical management. He is a diabetic. He has multiple chronic issues. In any case, on exam he looks well. No major complaints. His foot has dry dressing intact. ASSESSMENT AND PLAN: 1. Osteomyelitis and diabetic foot infection. Dr. Sánchez will manage primarily. I think he will discuss with Dr. Phipps about antibiotics. Currently on vancomycin, Levaquin and Flagyl. 2. Type 2 diabetes. He is insulin-dependent. We will continue his medications. He is on Levemir. He is on metformin. He is on Victoza, and we will continue to follow closely. 3. History of deep venous thrombosis. He is on anticoagulation. I would recommend resuming that as soon as we can, but again at the discretion of Dr. Sánchez as far as his blood thinners. This was a [id number] encounter note with ELENA Salamanca. cc: MD Kika Elaine MD
[2018-12-30] MEDS ORDERED: VANCOMYCIN 2,100 MG in NS 500 ML IV SCH (21:00)
[2018-12-30] MEDS: ULTRAM PO PRN (23:35)
[2018-12-30] MEDS: LEVEMIR SUBQ SCH (23:36)
[2018-12-30] MEDS: PERIDEX MT SCH (23:36)
[2018-12-31] MEDS: NORCO-7.5 PO PRN ×6 (02:00→23:01)
[2018-12-31] MEDS ORDERED: LOVENOX SUBQ SCH (06:00)
[2018-12-31] MEDS: FLAGYL 500 MG/NS 500 MG/100 ML IVPB IV SCH (06:07)
[2018-12-31] MEDS: SYNTHROID PO SCH (06:07)
[2018-12-31 06:27] LABS: BASO# 0.05 X1000 (0.0-0.2); BASO% 0.7 % (0.0-0.8); HEMATOCRIT 34.7 % (42.0-52.0); IMM GRAN# 0.02 X1000 (0.0-0.04); IMM GRAN% 0.3 % (0.0-0.5); LYMPH# 1.66 X1000 (1.2-3.4); LYMPH% 22.4 % (20.5-51.1); MCH 26.7 PG (27-31); MCHC 31.7 g/dL (33-37); MCV 84.2 FL (81-99); MONO# 0.66 X1000 (0.11-0.59); MONO% 8.9 % (1.7-9.3); MPV 9.2 FL (7.4-10.4); NEUT# 4.72 X1000 (1.4-6.5); NEUT% 63.7 % (42.2-75.2); PLT 389 X1000 (130-400); RBC 4.12 XMIL (4.7-6.1); RDW 14.7 % (11.5-14.5); WBC 7.41 X1000 (4.8-10.8)
[2018-12-31 06:49] LABS: AGAP 11; BUN 5 mg/dL (8-22); CHLORIDE 104 mmol/L (98-107); COSMO 282; CREATININE 0.7 mg/dL (0.7-1.2); GLUCOSE 170 mg/dL (70-104); POTASSIUM 5.7 mmol/L (3.5-5.1); SODIUM 141 mmol/L (136-145); TCO2 26 mmol/L (25-35)
[2018-12-31 06:50] LABS: ALBUMIN 3.1 g/dL (3.5-5.0); ALKALINE PHOSPHATASE 51 U/L (32-122); ESTIMATED GFR > 60; GOT 13 U/L (10-34); GPT 11 U/L (10-44); MAGNESIUM 1.5 mg/dL (1.5-2.7); PHOSPHORUS 2.6 mg/dL (2.7-4.5); TOTAL BILIRUBIN 0.29 mg/dL (0.20-1.00); TOTAL PROTEIN 6.1 g/dL (6.3-8.3)
[2018-12-31] MEDS: HUMALOG SUBQ SCH ×3 (06:54→17:38)
[2018-12-31] MEDS: VITAMIN D PO SCH (08:21)
[2018-12-31] MEDS: GLUCOPHAGE PO SCH ×2 (08:21→17:38)
[2018-12-31] MEDS: ARICEPT PO SCH (08:21)
[2018-12-31] MEDS: THERA M PLUS PO SCH (08:21)
[2018-12-31] MEDS: PERIDEX MT SCH ×2 (08:22→22:06)
[2018-12-31] MEDS: LEVEMIR SUBQ SCH (08:23)
[2018-12-31] MEDS: VICTOZA SUBQ SCH (08:25)
[2018-12-31] MEDS ORDERED: LIPITOR PO SCH (09:00)
[2018-12-31] MEDS ORDERED: LOKELMA POWDER PACKET PO ONE (09:40)
--- NOTE | 2018-12-31 09:53 | CONSULTATION ---
DATE OF CONSULTATION: 12/31/2018 ADDENDUM: I checked to see what the patient got preoperatively for his surgery. If he got Ancef, which is often given, then I would feel comfortable giving the patient cephalosporin antibiotics for his foot infection if needed. However, I did talk to the pharmacist and the patient got vancomycin preoperatively and not Ancef. cc: MD Kika Flores MD
--- NOTE | 2018-12-31 10:03 | INFECTIOUS DISEASE CONSULT REP ---
DATE: 12/31/2018 CONCLUSION: The patient is status post amputation of the second toe, and debridement down to bone. Gram stain from the foot taken at surgery shows gram-positive cocci. RECOMMENDATIONS: I have discontinued Levaquin, Flagyl, and vancomycin, and have put the patient on daptomycin pending culture results. Some of the side effects of daptomycin, including rash, diarrhea, and muscle toxicity have been explained to the patient. I stopped the patient's vancomycin because he is hard of hearing, and vancomycin can make that worse. Also, I have discontinued the patient's Lipitor because it can interact with daptomycin to cause an increased risk of muscle toxicity. The patient did have bone infection and, Dr. Sánchez did debride the patient's foot well. Since this is the third operation on the patient's foot, I would suggest treating the patient for 6 to 8 weeks with IV antibiotic just in case there is still some bone left in the patient's foot that is infected. PRESENT ILLNESS: The patient tells me that he has had three separate operations on his right foot. His laboratory studies thus far show a CBC with a white count of 7410, hemoglobin is 11, and platelet count is 389,000. Creatinine is 0.7. GFR is greater than 60. Liver function studies are normal. Cultures from the patient's foot are pending. As mentioned above, the Gram stain of the material at surgery shows gram-positive cocci. PAST MEDICAL HISTORY/REVIEW OF SYSTEMS: Eyes and Ears: The patient has decreased vision and hearing. Neck: No stiffness. Respiratory: No cough or shortness of breath. Cardiac: No chest pain or palpitations. GI: No nausea, vomiting, or diarrhea. : No dysuria or flank pain. Bones/Joints/Muscles: See present illness. Neurologic: The patient tells me he has a decrease in his memory, but he does not have any loss of motor or sensory function. PREVIOUS HOSPITALIZATIONS AND OPERATIONS: The patient has had three surgeries on his right foot. He has also had surgery on his left hand. He has also had a hemorrhoidectomy. MEDICAL DISEASES: Positive for diabetes mellitus, peripheral vascular disease, hypothyroidism, and possible dementia. INFECTIOUS DISEASE HISTORY: Positive for foot infection, which includes osteomyelitis. FAMILY HISTORY: Positive for diabetes mellitus and myocardial infarction. SOCIAL HISTORY: [place] . He has a dog as a pet. He has an allergy to penicillin, manifested by swelling in his throat. This happened about 50 years ago, and it could well be that he is not allergic to penicillin because earlier preparations of penicillin had contaminants, and it is more likely that the patient is allergic to one of the contaminants that early penicillin formulations had rather than the antibiotic, but since I cannot tell this for certain, I am going to go ahead and not use penicillin or a cephalosporin antibiotic. Preoperatively the patient received vancomycin. The patient does not smoke cigarettes, drink alcoholic beverages, or abuse drugs. HOME MEDICATIONS: Include Eliquis, Lipitor, Aricept, insulin, Synthroid, Victoza, Glucophage, and Ultram. PHYSICAL EXAMINATION: Vital Signs: Temperature is 98.2 degrees, pulse 86, respirations 18, blood pressure 119/69. The patient is 6 feet 2, and weighs 210 pounds. General: This is a healthy- appearing, elderly male. He is in no acute distress. HEENT: The patient has decreased hearing. He can see near objects. I did not see any white patches in his mouth. Neck: No meningismus. Lungs: Clear to auscultation. Cardiovascular: Heart rate is regular. Abdomen: Soft and nontender. Extremities: The patient's right foot has a dressing on it. The dressing is intact. Neurologic: The patient is alert. He can move his extremities. His sensation is intact to touch. His memory as regarding his medical history, according to the patient, is decreased. Integument: No rash. CONCLUSIO Thank you for the consult. cc: MD Kika Flores MD MTDD
[2018-12-31] MEDS ORDERED: CUBICIN 600 MG in NS 100 ML IV SCH (10:30)
[2018-12-31] MEDS: DILAUDID ONE ×2 (13:30)
--- NOTE | 2018-12-31 19:01 | PROGRESS NOTE ---
DATE: 12/31/2018 SUBJECTIVE: The patient has no major complaints. He seems to be doing better. OBJECTIVE: Vital Signs: Blood pressure 115/65, heart rate 79, respiratory rate 18, temperature 98.2 degrees, 100% on room air. Cardiovascular: Regular rate and rhythm. Pulmonary: Bilateral breath sounds, clear to auscultation. GI: Soft, nontender, nondistended. Bowel sounds are positive. LABORATORY DATA: White count 7, hemoglobin and hematocrit 11 and 34, platelets 389,000. Potassium is 5.7. PROBLEM LIST: 1. Cellulitis and osteomyelitis. He is on daptomycin per Dr. Phipps, planning for several weeks of intravenous therapy. 2. Type 2 diabetes. Will continue to monitor. Overall, his sugars have been fairly well controlled. Ideally, keep him below 100 daily, and ideally keep him below 150. Will continue to monitor off and on. 3. Hyperkalemia. Unclear what that necessarily precipitated from. We have treated with Lokelma and will continue to monitor. Repeat testing tomorrow. cc: MD Kika Elaine MD
--- NOTE | 2018-12-31 20:48 | GENERAL SURGERY PROGRESS NOTE ---
DATE: 12/31/2018 SUBJECTIVE/OBJECTIVE: Doing okay. Still having some pain, but well controlled. No fevers. No tachycardia. His dressing is clean. I reviewed his labs. White count 7, hematocrit is 34. Creatinine 0.7, glucose has fluctuated, but for the most part has been well controlled. Microbiology cultures are growing gram-negative rods as well as gram-positive cocci. ASSESSMENT/PLAN: This is a 73-year-old gentleman, status post amputation of right 2nd toe in a transmetatarsal fashion. There was purulence and it was cultured. I talked to Dr. Phipps about the patient. Pending cultures, we are going to make a recommendation for outpatient antibiotics. Otherwise, we will continue with local wound care, dressing changes starting tomorrow. Discussed plan with patient and his family. cc: Kika Sánchez MD
[2018-12-31] MEDS: ULTRAM PO PRN (22:06)
[2019-01-01] MEDS: LEVEMIR SUBQ SCH ×4 (05:49→20:38)
[2019-01-01] MEDS: HUMALOG SUBQ SCH ×5 (05:49→20:37)
[2019-01-01] MEDS: NORCO-7.5 PO PRN ×3 (06:01→18:03)
[2019-01-01] MEDS: SYNTHROID PO SCH (06:01)
[2019-01-01 06:42] LABS: RBC 4.14 XMIL (4.7-6.1); WBC 6.82 X1000 (4.8-10.8)
[2019-01-01 06:43] LABS: BASO# 0.04 X1000 (0.0-0.2); BASO% 0.6 % (0.0-0.8); EOS% 4.4 % (0.0-10.0); HEMATOCRIT 34.2 % (42.0-52.0); LYMPH# 1.85 X1000 (1.2-3.4); LYMPH% 27.1 % (20.5-51.1); MCH 26.6 PG (27-31); MCHC 32.2 g/dL (33-37); MCV 82.6 FL (81-99); MONO# 0.64 X1000 (0.11-0.59); MONO% 9.4 % (1.7-9.3); MPV 9.3 FL (7.4-10.4); NEUT# 3.99 X1000 (1.4-6.5); NEUT% 58.5 % (42.2-75.2); PLT 390 X1000 (130-400); RDW 14.5 % (11.5-14.5)
[2019-01-01 06:53] LABS: HEMOGLOBIN A1C 8.2 % (4.8-6.0)
[2019-01-01 07:02] LABS: AGAP 11; BUN 6 mg/dL (8-22); CALCIUM 8.9 mg/dL (8.8-10.2); CHLORIDE 102 mmol/L (98-107); COSMO 276; CREATININE 0.6 mg/dL (0.7-1.2); ESTIMATED GFR > 60; GLUCOSE 118 mg/dL (70-104); POTASSIUM 3.8 mmol/L (3.5-5.1); SODIUM 139 mmol/L (136-145); TCO2 26 mmol/L (25-35)
[2019-01-01] MEDS: GLUCOPHAGE PO SCH ×2 (07:44→18:06)
[2019-01-01] MEDS: THERA M PLUS PO SCH ×2 (07:45→08:06)
[2019-01-01] MEDS: ARICEPT PO SCH ×2 (07:45→08:05)
[2019-01-01] MEDS: VITAMIN D PO SCH ×2 (07:46→08:06)
[2019-01-01] MEDS: PERIDEX MT SCH ×3 (07:47→20:33)
[2019-01-01] MEDS: VICTOZA SUBQ SCH ×2 (07:48→08:06)
[2019-01-01] MEDS ORDERED: INSULIN PEN NEEDLES ONE (10:31)
[2019-01-01] MEDS: LEVAQUIN PO SCH (13:03)
[2019-01-01] MEDS: ULTRAM PO PRN (13:46)
[2019-01-01] MEDS ORDERED: SANTYL OINT TOP ONE (14:56)
[2019-01-01] MEDS ORDERED: LOVENOX SUBQ SCH (17:43)
--- NOTE | 2019-01-01 18:50 | INFECTIOUS DISEASE PROGRESS NO ---
DATE: 01/01/2019 PRESENT ILLNESS: The patient is status post amputation of the 2nd toe and debridement down to bone. Gram stain of material from surgery showed gram-positive cocci, but both cultures are growing E coli. MEDICATIONS: Currently, the patient is on daptomycin. PHYSICAL EXAMINATION: Vital Signs: Temperature is 97.7 degrees, pulse 100, respirations 18, blood pressure 126/78. General: This is a healthy-appearing, elderly male. He is in no acute distress. Head, eyes, ears, nose and throat: He has decreased hearing but he can see near objects. He does not have any white coating on his tongue. Neck: No meningismus. Lungs: Clear to auscultation. Cardiovascular: Heart rate is regular. Abdomen: Soft and nontender. Extremities: The patient has a large dressing on the foot. The dressing is intact. Neurologic: The patient is alert. He actually had a good memory about things that happened many years ago. He carried on a coherent conversation. He does have decreased hearing, however. Integument: No rash. LAB AND X-RAY: CBC today shows a white count of 6820, hemoglobin 11, platelet count is 390,000. Creatinine is 0.6. GFR is greater than 60. One culture from the patient's foot grew E coli. Another culture grew E coli also, and on Gram stain, gram-positive cocci were seen. ASSESSMENT AND PLAN: The patient has an Escherichia coli and gram-positive coccal infection. Bone was involved, but Dr. Sánchez feels he was able to debride the bone that had infection. Dr. Sánchez and I had discussed the patient, and our feeling is that since he has had 3 surgeries on the right foot that we would treat this patient for a prolonged period of time as if he had osteomyelitis. I am switching the patient to Levaquin. Some of the side effects of the antibiotic, including rash, diarrhea, seizures, and tendon rupture were explained to the patient and his . They both agree about using it, and I will treat him for a total of 6 weeks. While the patient is on Levaquin, he and his agreed to discontinuing the Aricept he takes because the 2 medications, namely Levaquin and Aricept, can interact to increase the QT interval. I have requested the patient have an appointment in my office at 3 weeks and then again he will have an appointment to see us also in 6 weeks. COMORBIDITIES: He is elderly, and he does have diabetes mellitus and peripheral vascular disease. cc: MD Kika Flores MD
--- NOTE | 2019-01-01 20:16 | PROGRESS NOTE ---
DATE: 01/01/2019 SUBJECTIVE: He looks well. No issues. OBJECTIVE: Vital signs: Blood pressure 107/61, heart rate 85, respiratory rate 18, temperature 98.4 degrees. Cardiovascular: Regular rate and rhythm. Pulmonary: Bilateral breath sounds clear to auscultation. GI: Soft, nontender, nondistended. Bowel sounds are positive. LABORATORY DATA: White count 6, H H 11 and 34, platelets 390,000. BUN and creatinine 6 and 0.6. The glucose is still variant; although, today it is a little bit higher than I would like. PROBLEM LIST: 1. Escherichia coli, cellulitis and osteomyelitis. It is growing out Escherichia coli, so he has been changed to Levaquin since that is what it is sensitive to and that should work. Duration will be per Dr. Phipps. I do not have a note from today. 2. Type 2 diabetes. This is still not under complete control. He is on very high dose Levemir and Victoza and metformin. We may need to adjust up his Levemir and see how he does here. 3. Disposition per Dr. Sánchez. Anticipate probably discharge soon. DISPOSITION: Pending clinical status and wound improvement. cc: MD Kika Elaine MD
--- NOTE | 2019-01-01 20:44 | GENERAL SURGERY PROGRESS NOTE ---
DATE: 01/01/2019 SUBJECTIVE: Doing okay. No fevers overnight. OBJECTIVE: Pulse has been in the 90s. Blood pressure 126/78. His right medial foot wound is clean. There is no purulence. There is no cellulitis. Remaining toes are viable. LABORATORY: White count 6. Creatinine 0.6. His wound cultures are growing E. coli susceptible to Levaquin. ASSESSMENT AND PLAN: A 73-year-old gentleman status post amputation of right 2nd toe. He is going to be discharged on long-term antibiotics, Dr. Phipps, Levaquin p.o. We will continue Santyl and Vashe dressings twice daily, and will continue to follow along. cc: Kika Sánchez MD
[2019-01-02] MEDS: SYNTHROID PO SCH (06:20)
[2019-01-02] MEDS: LOVENOX SUBQ SCH (06:21)
[2019-01-02] MEDS: HUMALOG SUBQ SCH ×4 (06:52→21:25)
[2019-01-02] MEDS: NORCO-7.5 PO PRN ×2 (07:59→21:24)
[2019-01-02] MEDS: VITAMIN D PO SCH (08:00)
[2019-01-02] MEDS: GLUCOPHAGE PO SCH ×2 (08:00→17:50)
[2019-01-02] MEDS: LEVAQUIN PO SCH (08:00)
[2019-01-02] MEDS: THERA M PLUS PO SCH (08:00)
[2019-01-02] MEDS: PERIDEX MT SCH ×2 (08:00→21:25)
[2019-01-02] MEDS: LEVEMIR SUBQ SCH ×2 (08:01→21:24)
[2019-01-02] MEDS: VICTOZA SUBQ SCH (08:03)
[2019-01-02] MEDS ORDERED: SANTYL OINT TOP SCH (09:00)
--- NOTE | 2019-01-02 18:05 | INFECTIOUS DISEASE PROGRESS NO ---
DATE: 01/02/2019 PRESENT ILLNESS: Mr. Lama is status post amputation of his right 2nd toe with debridement down to the bone. Foot cultures x2 are growing an Escherichia coli. MEDICATIONS: He is receiving Levaquin 500 mg by mouth once a day, that was started yesterday. PHYSICAL EXAMINATION: Vital Signs: Temperature is 98.5 degrees, pulse rate 103, respiratory rate 18, blood pressure 118/77, O2 saturation is 99% on room air. General: This is an elderly, fairly healthy-appearing gentleman. He is sitting up in bed, currently in no acute distress. HEENT: Atraumatic, normocephalic. Oral mucous membranes are pink and moist. Conjunctivae are pink. Neck: Supple. Trachea is midline. Cardiovascular: Heart rate is regular. Respiratory: Lung sounds are clear to auscultation bilaterally. No work of breathing is noted. Abdomen: Soft, round, nontender to palpation. Bowel sounds are active. Neurologic: He is awake, alert, oriented and able to move around in the bed independently. Integumentary: The right foot wound has devitalized tissue with some frankly necrotic tissue, purulence and a foul odor. There is a 1+ pretibial edema noted on the right. LABORATORY AND X-RAY: None available today. ASSESSMENT AND PLAN: Mr. Lama has an Escherichia coli infection to the right foot and is status post debridement down to the bone with amputation of the 2nd toe. He had previous amputation of the great toe. At this point we will continue Levaquin 500 mg by mouth daily. He will need a full 6 weeks of treatment with Levaquin. A prescription has been placed on the front of his chart. We will see him in our office at 3 weeks and then again at 6 weeks. These plans have been discussed with and recommended by Dr. Phipps. COMORBIDITIES: for Mr. Lama include that he is elderly, with diabetes mellitus and peripheral vascular disease. Dictated by ELENA Contreras for Lionel Phipps MD cc: MD Kika Flores MD MTDD
--- NOTE | 2019-01-02 21:51 | GENERAL SURGERY PROGRESS NOTE ---
DATE: 01/02/2019 Doing well. Dressing changes are going okay. Glucoses are fluctuating. No significant pain. ASSESSMENT AND PLAN: A 73-year-old gentleman with right foot necrosis. He is on appropriate antibiotics. Dr. Phipps is following. Continue with Santyl through the weekend and plan for maybe further debridement or Santyl as an outpatient. cc: Kika Sánchez MD
--- NOTE | 2019-01-02 22:08 | PROGRESS NOTE ---
DATE: 01/02/2019 SUBJECTIVE: Patient had no complaints. OBJECTIVE: Vital signs: Blood pressure is 139/97, heart rate 78, respiratory rate 20, temperature 98.1 degrees, 100% on room air. Cardiovascular: Regular rate and rhythm. Pulmonary: Bilateral breath sounds clear to auscultation. Gastrointestinal: Soft, nontender, nondistended. Bowel sounds are positive. No new labs today. PROBLEM LIST: 1. Escherichia coli osteomyelitis, cellulitis. ID is following. He has been switched to Levaquin. We will continue to monitor and decide about long-term therapy. 2. Type 2 diabetes is stable. We will continue to follow. 3. Recent resection per Dr. Sánchez. PLAN: It looks like is for a debridement, and he will need a wound VAC and then anticipate discharge after that so possibly discharge tomorrow per primary surgical service. cc: MD Kika Elaine MD
[2019-01-03 05:40] LABS: BASO# 0.05 X1000 (0.0-0.2); BASO% 0.6 % (0.0-0.8); EOS% 3.9 % (0.0-10.0); HEMATOCRIT 37.5 % (42.0-52.0); IMM GRAN# 0.02 X1000 (0.0-0.04); IMM GRAN% 0.3 % (0.0-0.5); LYMPH# 2.01 X1000 (1.2-3.4); LYMPH% 25.8 % (20.5-51.1); MCH 26.6 PG (27-31); MCV 83.1 FL (81-99); MONO# 0.68 X1000 (0.11-0.59); MONO% 8.7 % (1.7-9.3); MPV 8.9 FL (7.4-10.4); NEUT# 4.72 X1000 (1.4-6.5); NEUT% 60.7 % (42.2-75.2); PLT 440 X1000 (130-400); RBC 4.51 XMIL (4.7-6.1); RDW 14.7 % (11.5-14.5); WBC 7.78 X1000 (4.8-10.8)
[2019-01-03 06:34] LABS: AGAP 12; BUN 11 mg/dL (8-22); CALCIUM 9.3 mg/dL (8.8-10.2); CHLORIDE 103 mmol/L (98-107); COSMO 284; CREATININE 0.7 mg/dL (0.7-1.2); ESTIMATED GFR > 60; GLUCOSE 92 mg/dL (70-104); POTASSIUM 4.2 mmol/L (3.5-5.1); SODIUM 143 mmol/L (136-145); TCO2 28 mmol/L (25-35)
[2019-01-03] MEDS: SYNTHROID PO SCH (06:56)
[2019-01-03] MEDS: LOVENOX SUBQ SCH (06:56)
[2019-01-03] MEDS: HUMALOG SUBQ SCH ×4 (07:41→21:49)
[2019-01-03] MEDS: GLUCOPHAGE PO SCH ×2 (08:51→16:54)
[2019-01-03] MEDS: VITAMIN D PO SCH (08:51)
[2019-01-03] MEDS: LEVAQUIN PO SCH (08:51)
[2019-01-03] MEDS: THERA M PLUS PO SCH (08:51)
[2019-01-03] MEDS: PERIDEX MT SCH ×2 (08:51→21:50)
[2019-01-03] MEDS: LEVEMIR SUBQ SCH ×2 (08:51→21:55)
[2019-01-03] MEDS: SANTYL OINT TOP SCH (08:52)
[2019-01-03] MEDS: VICTOZA SUBQ SCH (08:52)
--- NOTE | 2019-01-03 09:54 | PROGRESS NOTE ---
DATE: 01/03/2019 SUBJECTIVE: Mr. Lama is a 73-year-old, white male who has had a toe amputation right foot per Dr. Sánchez. The wound has just been dressed. OBJECTIVE: His heart rate is 90, blood pressure 120/72, O2 saturation 98%. He is afebrile. He is receiving IV antibiotics. Local wound care. LABORATORY DATA: His white blood cell count is normal. Hematocrit is 37%. Electrolytes are within normal limits. His sugars range from 68 to 244. PLAN: We will continue wound care. IV antibiotics. I think the plan is to establish a wound VAC on Saturday. cc: MD Kika Munoz MD
--- NOTE | 2019-01-03 18:43 | PROGRESS NOTE ---
DATE: 01/03/2019 SUBJECTIVE: Patient has no major complaints. OBJECTIVE: Blood pressure is 122/73, heart rate 92, respiratory rate 20, temperature 98.6 degrees, 99% on room air.Cardiovascular: Regular rate and rhythm. Pulmonary: Bilateral breath sounds. Clear to auscultation. Gastrointestinal: Soft, nontender, nondistended. Bowel sounds are positive. Extremities: No clubbing or cyanosis. Lymphatic: No peripheral edema. Neurological: Nonfocal. Dressing over his left foot. LABORATORY DATA: White count 7, hemoglobin and hematocrit 12 and 37, platelets 440,000. Basic was normal. PROBLEM LIST: 1. Escherichia coli osteomyelitis, status post debridement. Dr. Phipps and Dr. Sánchez following. Plan is for wound VAC, which I guess at this point will be Saturday, and then he can go home after that on oral Levaquin for a 6-week course. 2. Type 2 diabetes. He did have a low blood sugar. We adjusted up his Levemir, but on average, his blood sugars are above 200, so we will continue to monitor. 3. Disposition. Plan is to go home with home therapy once he kind of stabilizes. We will continue to monitor and anticipate discharge on 01/05/2019. cc: MD Kika Elaine MD
[2019-01-04] MEDS ORDERED: INSULIN PEN NEEDLES ONE (05:11)
[2019-01-04] MEDS: SYNTHROID PO SCH (06:11)
[2019-01-04] MEDS: LOVENOX SUBQ SCH (06:11)
[2019-01-04] MEDS: HUMALOG SUBQ SCH ×3 (06:50→17:32)
[2019-01-04] MEDS ORDERED: CITRATE OF MAGNESIA PO ONE (08:09)
--- NOTE | 2019-01-04 08:23 | PROGRESS NOTE ---
DATE: 01/04/2019 Mr. Lama is a 73-year-old white male who Dr. Sánchez has done a toe amputation on. He is getting daily wound dressings. His sugar has been 68 to 195. He complains of constipation. He is receiving Levaquin IV. Wound care and IV antibiotics continue, and will give him laxatives to help him move his bowels. cc: MD Kika Munoz MD
[2019-01-04] MEDS: THERA M PLUS PO SCH (10:04)
[2019-01-04] MEDS: GLUCOPHAGE PO SCH ×2 (10:04→17:01)
[2019-01-04] MEDS: SANTYL OINT TOP SCH (10:04)
[2019-01-04] MEDS: PERIDEX MT SCH ×2 (10:04→21:04)
[2019-01-04] MEDS: LEVAQUIN PO SCH (10:04)
[2019-01-04] MEDS: VITAMIN D PO SCH (10:04)
[2019-01-04] MEDS: VICTOZA SUBQ SCH (10:07)
[2019-01-04] MEDS: LEVEMIR SUBQ SCH (10:07)
[2019-01-04] MEDS: COLACE PO SCH ×2 (10:07→21:05)
--- NOTE | 2019-01-04 15:49 | PROGRESS NOTE ---
DATE: 01/04/2019 SUBJECTIVE: The patient has no major complaints. OBJECTIVE: Blood pressure 117/70, heart rate 113, respiratory rate 20, temperature 94 degrees, 100% on room air.Cardiovascular: Regular rate and rhythm. Pulmonary: Bilateral breath sounds clear to auscultation. GI: Was soft, nontender, nondistended. Bowel sounds are positive. Extremities: No clubbing or cyanosis. Lymphatic: No peripheral edema. Neurological: Nonfocal. LABORATORY DATA: Sugars have ranged from 68 down to 88 today but still normal 145, 148 so I think under decent control. PROBLEMS: 1. Escherichia coli osteo status post debridement. Plan is for wound VAC tomorrow and then Levaquin for [address] Phipps. 2. Type 2 diabetes is fairly well controlled. He has been on a little bit higher dose of Levemir. Continue to watch that. DISPOSITION: Anticipate discharge soon likely in the next 24 hours if stable. cc: MD Kika Elaine MD MTDD
[2019-01-05] MEDS: HUMALOG SUBQ SCH ×5 (02:26→21:56)
[2019-01-05] MEDS: LEVEMIR SUBQ SCH ×3 (02:27→21:56)
[2019-01-05] MEDS: LOVENOX SUBQ SCH (06:41)
[2019-01-05] MEDS: SYNTHROID PO SCH (06:41)
[2019-01-05] MEDS: VITAMIN D PO SCH (09:23)
[2019-01-05] MEDS: THERA M PLUS PO SCH (09:23)
[2019-01-05] MEDS: LEVAQUIN PO SCH (09:23)
[2019-01-05] MEDS: PERIDEX MT SCH ×2 (09:24→21:56)
[2019-01-05] MEDS: GLUCOPHAGE PO SCH ×2 (09:24→17:23)
[2019-01-05] MEDS: COLACE PO SCH ×2 (09:24→21:55)
[2019-01-05] MEDS: VICTOZA SUBQ SCH (09:26)
[2019-01-05] MEDS: SANTYL OINT TOP SCH (09:28)
--- NOTE | 2019-01-05 13:05 | GENERAL SURGERY PROGRESS NOTE ---
DATE: 01/05/2019 SUBJECTIVE: No events overnight. Feels well. Dressing changes are going okay. OBJECTIVE: No fevers. No tachycardia. His right foot wound does have some desiccation superficially with some dry postsurgical changes, but no purulence, no mason necrosis, but there is some eschar here. DIAGNOSTIC STUDIES: White count is normal. Creatinine 0.7, glucose has been better controlled since his debridement. ASSESSMENT AND PLAN: DR. Phipps plans oral Levaquin as an outpatient for osteomyelitis. Continue local wound care with Santyl, holding off on VAC placement now. He may require further outpatient surgical debridement, but as of now, suspect this is postoperative changes. We do need to continue with the Vashe twice daily. cc: Kika Sánchez MD
[2019-01-05] MEDS: NORCO-7.5 PO PRN ×2 (15:07→21:55)
[2019-01-05] MEDS: AZACTAM 2 GM in NS 100 ML IV SCH ×2 (15:11→22:13)
--- NOTE | 2019-01-05 15:38 | INFECTIOUS DISEASE PROGRESS NO ---
DATE: 01/05/2019 PRESENT ILLNESS: The patient is status post amputation and debridement of the right foot. MEDICATION: The patient is receiving Levaquin 500 mg by mouth daily. When I started the patient on Levaquin, I discontinued his Aricept because the 2 medications, namely Levaquin and Aricept, can cause adverse reaction. PHYSICAL EXAMINATION: Vital signs: Temperature is 98.3 degrees, pulse 94, respirations 18, blood pressure 130/81. General: This is an elderly, fairly healthy-appearing male. Since the Aricept had been discontinued, he seems to be somewhat depressed and he has been yelling at some of the nurses. Head, eyes, ears, nose, and throat: He can hear my spoken words and see near objects. He does not have any white coating on his tongue. Neck: No meningismus. Lungs: Clear to auscultation. Cardiovascular: Regular heart rate. Abdomen: Soft and nontender. Extremities: Patient has a dressing around the right foot. The dressing is intact. Neurologic: The patient is awake. He seems somewhat depressed and he had yelled at some of the nurses. LAB AND X-RAY: Two days ago the patient's CBC showed a white count of 7780, hemoglobin 12 and platelet count 440,000. Creatinine was 0.7. GFR is greater than 60. There is no radiology report in the past 3 days. ASSESSMENT AND PLAN: The patient is status post surgery on his right foot from which Escherichia coli was isolated from his wounds. The patient has had an altered mental status since stopping Aricept and starting Levaquin. My plan now is to discontinue Levaquin and because the patient had a severe reaction to penicillin, I am going to put the patient on aztreonam 2 g IV every 8 hours. Also, I have restarted his Aricept at a dose of 5 mg each night. Levaquin, as mentioned above, has been discontinued. COMORBIDITIES: The patient is elderly. He has diabetes mellitus, peripheral vascular disease and dementia. cc: MD Kika Flores MD
--- NOTE | 2019-01-05 18:35 | PROGRESS NOTE ---
DATE: 01/05/2019 SUBJECTIVE: Patient has no major complaints. The patient is doing well, I think. OBJECTIVE: Blood pressure is 115/67, heart rate 94, respiratory 18, temperature 98.2 degrees.Cardiovascular: Regular rate and rhythm. Pulmonary: Bilateral breath sounds. Clear to auscultation. GI: Soft, nontender, nondistended. Bowel sounds are positive. PROBLEM LIST: 1. Osteomyelitis. 2. Escherichia coli. 3. Diabetic foot, status post debridement. PLAN: 1. Is to hold off on further wound VAC and he may need further debridement. We will continue wound care at the discretion of surgery team for discharge. 2. The plan initially was for Levaquin, but now I think he has been placed on Azactam. Reportedly, he has been altered, which I do not know. I do not believe he has been that altered, I do not know. He seems pretty close to baseline to me. But, in any case, he has been placed on Azactam, which I guess I would defer to Dr. Phipps, but he seems like he is fairly stable. 3. Type 2 diabetes is stable. DISPOSITION: Anticipate discharge soon, but I guess now we will have to look at a PICC line and IV antibiotics. cc: MD Kika Elaine MD
[2019-01-05] MEDS: ARICEPT PO SCH (21:55)
[2019-01-06] MEDS: CLEOCIN PO SCH ×3 (07:00→23:01)
[2019-01-06] MEDS: AZACTAM 2 GM in NS 100 ML IV SCH ×3 (07:00→23:01)
[2019-01-06] MEDS: SYNTHROID PO SCH (07:00)
[2019-01-06] MEDS: HUMALOG SUBQ SCH ×3 (07:01→23:02)
[2019-01-06] MEDS: LOVENOX SUBQ SCH (07:01)
[2019-01-06] MEDS ORDERED: INSULIN PEN NEEDLES ONE (07:26)
[2019-01-06] MEDS: COLACE PO SCH ×2 (08:02→23:01)
[2019-01-06] MEDS: VITAMIN D PO SCH (08:02)
[2019-01-06] MEDS: PERIDEX MT SCH ×2 (08:02→23:01)
[2019-01-06] MEDS: VICTOZA SUBQ SCH (08:03)
[2019-01-06] MEDS: SANTYL OINT TOP SCH (08:03)
[2019-01-06] MEDS: LEVEMIR SUBQ SCH ×2 (08:03→23:02)
[2019-01-06] MEDS: THERA M PLUS PO SCH (08:03)
[2019-01-06] MEDS: GLUCOPHAGE PO SCH (08:03)
--- NOTE | 2019-01-06 09:17 | INFECTIOUS DISEASE PROGRESS NO ---
DATE: 01/06/2019 PRESENT ILLNESS: The patient is status post partial amputation of the right foot and debridement of the foot. The patient was receiving Levaquin, and I discontinued the patient's Aricept when he was on Levaquin, because the two can interact and cause an adverse reaction. The patient became depressed, and because of that I went ahead and restarted the Aricept, discontinued Levaquin, and placed the patient on aztreonam to cover the E coli that was seen on culture of the foot. MEDICATION: As mentioned above the patient is on aztreonam and Aricept and today I started clindamycin PO. PHYSICAL EXAMINATION: Vital Signs: Temperature is 98.3 degrees, pulse 81, respiration 19, blood pressure 116/75. General: This is an elderly, fairly healthy-appearing male. He seems to be feeling much better since I restarted his Aricept last night rather than the depressed way he looked prior to restarting the Aricept. Head/eyes/ears/nose/throat: He can hear my spoken words and see near objects. He does not have any drainage from his nose or ears. He does not have any white patches in his mouth. Neck: No pain with movement of his neck. Lungs: Clear to auscultation. Cardiovascular: Heart rate is regular. Abdomen: Soft and nontender. Extremities: I removed the dressing again from the patient's right foot. The wound is purulent. It has devitalized tissue and it has a foul odor. Neurologic: As mentioned above, I restarted the patient's Aricept and today he seems to be in much better spirits. LAB AND X-RAY: There is no new lab or x-ray for today. ASSESSMENT AND PLAN: The patient's right foot to me looks worse now. I have gone ahead and gotten another culture from the foot, and for now I am going to continue the a aztreonam which will cover the Escherichia coli that was isolated from the patient's foot earlier. I am going to go ahead and add oral clindamycin until I get back the culture that I just took today. COMORBIDITIES: The patient is elderly. He is a diabetic. He has peripheral vascular disease, as well as dementia. cc: MD Kika Flores MD MTDD
[2019-01-06] MEDS: NORCO-7.5 PO PRN (13:13)
--- NOTE | 2019-01-06 14:52 | GENERAL SURGERY PROGRESS NOTE ---
DATE: 01/06/2019 SUBJECTIVE: No fevers. Overall doing well. Says his foot feels better. OBJECTIVE: He does have some dry eschar changes. I do not see purulence of his foot. No fevers. No cellulitis. No exposed bone. There is some healthy granulation underneath his wound bed. DIAGNOSTIC STUDIES: Glucoses are in the 300s. Repeat wound cultures have been obtained by Dr. Phipps. ASSESSMENT AND PLAN: A 73-year-old gentleman status post amputation of the right second toe. I posted for afternoon for excision debridement and wound VAC placement. After this, we plan on letting him go home if cleared by the medical services. cc: MD Jose Francisco Rao MD
--- NOTE | 2019-01-06 19:02 | PROGRESS NOTE ---
DATE: 01/06/2019 SUBJECTIVE: Patient has no major complaints. OBJECTIVE: Blood pressure is 130/79, heart rate of 84, respiratory rate of 20, temperature 98.2 degrees.Cardiovascular: Regular rate and rhythm. Pulmonary: Bilateral breath sounds. Clear to auscultation. Gastrointestinal: Soft, nontender, nondistended. Bowel sounds are positive. LABORATORY DATA: We do not really have any new data today. Sugars have been not so great the last 24 hours. PROBLEM LIST: 1. Diabetes. We will continue adjusting his medications. I will bump up his Levemir to 75, and see how he does. 2. Osteomyelitis, Escherichia coli, which is getting wound care and antibiotic therapy. It is not amenable to debridement at this point with vancomycin. Dr. Phipps feels that this needs additional antibiotics. Now he is on aztreonam and clindamycin. He felt that the dementia got worse with Levaquin. Did not appreciate much of a difference, but I spoke to his , Alberta, who is a retired nurse, but she felt that he was more agitated yesterday. Although, I think this kind of comes and goes. In any case, at this point, not sure if it is going to be IV antibiotics or oral antibiotics, still a little bit uncertain, but we will continue to follow closely. cc: Jose Francisco Irving MD
[2019-01-06] MEDS: ARICEPT PO SCH (23:01)
[2019-01-07] MEDS: AZACTAM 2 GM in NS 100 ML IV SCH ×3 (05:47→22:07)
[2019-01-07] MEDS: SYNTHROID PO SCH ×2 (05:47→07:20)
[2019-01-07] MEDS: CLEOCIN PO SCH ×3 (05:47→22:07)
[2019-01-07] MEDS: LOVENOX SUBQ SCH (05:48)
[2019-01-07 06:50] LABS: BASO# 0.04 X1000 (0.0-0.2); BASO% 0.5 % (0.0-0.8); EOS# 0.29 X1000 (0.0-0.7); HEMATOCRIT 38.2 % (42.0-52.0); LYMPH# 2.03 X1000 (1.2-3.4); LYMPH% 27.8 % (20.5-51.1); MCH 26.7 PG (27-31); MCHC 31.4 g/dL (33-37); MCV 85.1 FL (81-99); MONO# 0.66 X1000 (0.11-0.59); MONO% 9.1 % (1.7-9.3); NEUT# 4.27 X1000 (1.4-6.5); NEUT% 58.6 % (42.2-75.2); PLT 407 X1000 (130-400); RBC 4.49 XMIL (4.7-6.1); RDW 15.3 % (11.5-14.5); WBC 7.29 X1000 (4.8-10.8)
[2019-01-07 07:23] LABS: AGAP 11; BUN 11 mg/dL (8-22); CALCIUM 8.8 mg/dL (8.8-10.2); CHLORIDE 103 mmol/L (98-107); COSMO 283; CREATININE 0.5 mg/dL (0.7-1.2); ESTIMATED GFR > 60; GLUCOSE 139 mg/dL (70-104); POTASSIUM 4.5 mmol/L (3.5-5.1); SODIUM 141 mmol/L (136-145); TCO2 27 mmol/L (25-35)
[2019-01-07] MEDS: HUMALOG SUBQ SCH ×4 (07:39→22:07)
[2019-01-07] MEDS: THERA M PLUS PO SCH (09:05)
[2019-01-07] MEDS: GLUCOPHAGE PO SCH ×2 (09:05→18:19)
[2019-01-07] MEDS: LEVEMIR SUBQ SCH ×2 (09:05→22:10)
[2019-01-07] MEDS: PERIDEX MT SCH ×2 (09:05→22:07)
[2019-01-07] MEDS: VITAMIN D PO SCH (09:05)
[2019-01-07] MEDS: COLACE PO SCH ×2 (09:05→22:07)
[2019-01-07] MEDS: VICTOZA SUBQ SCH (09:07)
[2019-01-07] MEDS: SANTYL OINT TOP SCH (09:07)
--- NOTE | 2019-01-07 14:12 | INFECTIOUS DISEASE PROGRESS NO ---
DATE: 01/07/2019 PRESENT ILLNESS: Patient has an infected right foot which has had partial amputation and debridement. MEDICATIONS: The patient is receiving IV aztreonam and p.o. clindamycin. PHYSICAL EXAMINATION: Vital Signs: Temperature is 97.5 degrees, pulse 88, respirations 18, blood pressure 112/61. General: This is an elderly, somewhat ill-appearing male. He is in no acute distress. Head, Eyes, Ears, Nose, and Throat: Can hear my spoken words and see near objects. I did not notice any white coating on his tongue. Neck: No pain with movement of the neck. Lungs: Clear to auscultation. Cardiovascular: Heart rate is regular. Abdomen: Soft and nontender. The patient's right foot has a dressing around it. The dressing is intact. Neurologic: The patient is awake. He can move his extremities. There is no tremor. DIAGNOSTIC STUDIES: CBC shows a white count of 7290, hemoglobin 12, platelet count is 407,000. Creatinine is 0.5, GFR is greater than 60. Repeat culture that I took from the patient's right foot is growing gram-positive cocci. ASSESSMENT AND PLAN: The patient has an infected right foot. I am continuing with clindamycin and aztreonam pending final culture results. I certainly agree with Dr. Sánchez reoperating on the foot and then putting the VAC on the patient's foot. COMORBIDITIES: 1. The patient is elderly. 2. He is a diabetic. 3. He has peripheral vascular disease. cc: MD Jose Francisco Flores MD
[2019-01-07] MEDS: NORCO-7.5 PO PRN ×2 (14:59→22:07)
--- NOTE | 2019-01-07 18:02 | PROGRESS NOTE ---
DATE: 01/07/2019 SUBJECTIVE: Patient has no major complaints. OBJECTIVE: Blood pressure is 135/68, heart rate 104, respiratory rate 18, temperature degrees 98.2, 98% on room air.Cardiovascular: Regular rate and rhythm. Pulmonary: Bilateral breath sounds clear to auscultation. Gastrointestinal: Soft, nontender, nondistended. Bowel sounds are positive. LABORATORY DATA: White count is 7, hemoglobin 12, hematocrit 38, platelets 407,000. Basic was normal. PROBLEM LIST: 1. Escherichia coli, osteomyelitis, now also growing out gram-positive cocci. He is on aztreonam and clindamycin. Plan is for further debridement tomorrow per Dr. Sánchez. The patient states that his episode yesterday where he got upset or a couple days ago was not related to altered mental status. He says he can be taken off his Aricept if Levaquin is an option. He was upset because he was unable to go home. I suppose it is certainly possible he could be telling us what we want to hear, but I think also there is an alternative that he understands relatively what is going on and that may be an option, but now that he has a new bacteria growing out, we will have to wait on sensitivities. 2. Type 2 diabetes. He is on Levemir. Blood sugars are still not under perfect control, but still better than the 300s. We will continue to titrate further. I am not going to push it today because he is going to get surgery tomorrow. DISPOSITION: He did pretty well with physical therapy so I think overall he is doing well from that standpoint, but plan is to go home with wound VAC once cleared by Surgery and ID. We will continue to follow. cc: Jose Francisco Irivng MD
--- NOTE | 2019-01-07 20:46 | GENERAL SURGERY PROGRESS NOTE ---
DATE: 01/07/2019 SUBJECTIVE/OBJECTIVE: Doing okay. Dressing changes are going fine. I have him on the schedule for tomorrow for excisional debridement of his right foot. Repeat wound cultures are growing gram- positive cocci. Dr. Phipps is making recommendations. He did add clindamycin. ASSESSMENT/PLAN: I have discussed the risks and benefits with the patient. We will plan to go the operating room tomorrow for excisional debridement with wound VAC placement. Disposition is pending findings at this time. Overall, I think the wound is progressing as expected. It is a complicated diabetic wound. There is no exposed bone. I do not see progressive necrosis. It is just mostly the wound edge that is having some eschar, necrotic-type changes. We will debride this to promote healing. cc: MD Jose Francisco Rao MD
[2019-01-07] MEDS: ARICEPT PO SCH (22:07)
[2019-01-08] MEDS ORDERED: INSULIN PEN NEEDLES ONE (06:02)
[2019-01-08] MEDS: CLEOCIN PO SCH ×4 (06:21→22:53)
[2019-01-08] MEDS: LOVENOX SUBQ SCH (06:21)
[2019-01-08] MEDS: SYNTHROID PO SCH (06:21)
[2019-01-08] MEDS: HUMALOG SUBQ SCH ×4 (06:22→21:32)
[2019-01-08] MEDS: AZACTAM 2 GM in NS 100 ML IV SCH ×3 (06:52→22:51)
[2019-01-08 07:28] LABS: BASO# 0.02 X1000 (0.0-0.2); BASO% 0.3 % (0.0-0.8); EOS% 6.4 % (0.0-10.0); HEMATOCRIT 37.4 % (42.0-52.0); IMM GRAN# 0.03 X1000 (0.0-0.04); IMM GRAN% 0.5 % (0.0-0.5); LYMPH# 2.05 X1000 (1.2-3.4); MCH 26.7 PG (27-31); MCHC 32.1 g/dL (33-37); MCV 83.3 FL (81-99); MONO# 0.57 X1000 (0.11-0.59); MONO% 9.2 % (1.7-9.3); MPV 9.1 FL (7.4-10.4); NEUT# 3.14 X1000 (1.4-6.5); NEUT% 50.6 % (42.2-75.2); PLT 415 X1000 (130-400); RBC 4.49 XMIL (4.7-6.1); RDW 15.3 % (11.5-14.5); WBC 6.21 X1000 (4.8-10.8)
[2019-01-08 07:46] LABS: AGAP 13; BUN 13 mg/dL (8-22); CHLORIDE 101 mmol/L (98-107); COSMO 275; CREATININE 0.5 mg/dL (0.7-1.2); ESTIMATED GFR > 60; GLUCOSE 59 mg/dL (70-104); POTASSIUM 3.5 mmol/L (3.5-5.1); SODIUM 139 mmol/L (136-145); TCO2 25 mmol/L (25-35)
[2019-01-08] MEDS: GLUCOPHAGE PO SCH ×2 (08:51→16:28)
[2019-01-08] MEDS: VITAMIN D PO SCH (08:52)
[2019-01-08] MEDS: COLACE PO SCH ×2 (08:52→21:12)
[2019-01-08] MEDS: VICTOZA SUBQ SCH (08:53)
[2019-01-08] MEDS: THERA M PLUS PO SCH (08:55)
[2019-01-08] MEDS: PERIDEX MT SCH ×2 (08:55→21:13)
[2019-01-08] MEDS: LEVEMIR SUBQ SCH ×2 (08:56→21:31)
[2019-01-08] MEDS: SANTYL OINT TOP SCH (08:58)
[2019-01-08] MEDS: NORCO-7.5 PO PRN ×2 (12:22→21:12)
[2019-01-08] MEDS ORDERED: DIPRIVAN 1% ONE (14:48)
[2019-01-08] MEDS ORDERED: XYLOCAINE-MPF 2% ONE (15:15)
[2019-01-08] MEDS ORDERED: ZOFRAN ONE (16:30)
[2019-01-08] MEDS: DILAUDID ONE ×2 (17:15→17:18)
--- NOTE | 2019-01-08 17:42 | PROGRESS NOTE ---
DATE: 01/08/2019 SUBJECTIVE: The patient has no major complaints. He does have right foot infection. Culture showed Escherichia coli twice, and also a recent culture from 01/06/2019 showed a micrococcus species. Infectious Disease department on board. This patient is going today for a surgery, I D. OBJECTIVE: Vital Signs: Temperature 98.3 degrees, pulse 81, respiratory rate 18, blood pressure 102/72, oxygen saturation 97% on room air. HEENT: Head normocephalic, no trauma. PERRLA. Neck: Supple. No JVD. No masses. Central trachea. Chest: Clear to auscultation. No wheezing. No rales. Abdomen: Soft, nontender, nondistended. No hepatosplenomegaly. Extremities: No edema, no clubbing, no cyanosis. Right foot is covered with a dressing, and he is going right now for surgery. Neurological: The patient is alert and oriented x3. No focal deficit. LABORATORY: WBC 6.2, hemoglobin 12, hematocrit 37.4, platelets 415,000. Sodium 139, potassium 3.5, chloride 101, bicarbonate 25, BUN 13, creatinine 0.5, glucose 59, calcium 9. ASSESSMENT AND PLAN: 1. Right foot infection with Escherichia coli, probably osteomyelitis. He is going today for an I D. We will continue with antibiotics, and a recent culture showed a micrococcus species. I will continue following the recommendations of Infectious Disease department. Hopefully, we are going to be able to discharge this patient in the next 24 to 48 hours. 2. Type 2 diabetes. He is on Levemir. He had an episode of hypoglycemia today basically because he did not eat in the morning, but he did receive the dose of Levemir during the night. We will monitor. At the moment of my exam, he was completely alert and without any kind of symptoms. cc: Ulisses Cadet MD
--- NOTE | 2019-01-08 20:32 | OPERATIVE NOTE ---
PROCEDURE DATE: 01/08/2019 PREOPERATIVE DIAGNOSIS: Nonhealing diabetic foot wound on the right. POSTOPERATIVE DIAGNOSIS: Nonhealing diabetic foot wound on the right. PROCEDURE PERFORMED: Excisional debridement 7 x 4 x 1 cm down to the level of tendon/bone with wound VAC. ESTIMATED BLOOD LOSS: 10 mL. SPECIMENS: Necrotic tissue. OPERATIVE NOTE: Risks benefits and alternatives were discussed with the patient, and he consented to the procedure. He was seen preoperatively and surgical site was confirmed and marked the operating room. He was placed in supine position. General anesthesia was induced. His right foot was prepped with Betadine and draped in sterile fashion. After a time-out, using a combination of scalpel and curette, we excised all necrotic tissue back to healthy bleeding tissue. This was down to the level of bone and tendon. We irrigated the wound and placed a black sponge wound VAC at -125 suction. He tolerated it well. No complications. cc: MD Ulisses Rao MD [facility]
[2019-01-08] MEDS: ARICEPT PO SCH (21:12)
[2019-01-09] MEDS: LOVENOX SUBQ SCH (05:32)
[2019-01-09] MEDS: CLEOCIN PO SCH ×2 (05:32→15:03)
[2019-01-09] MEDS: HUMALOG SUBQ SCH ×2 (06:41→12:00)
[2019-01-09] MEDS: SYNTHROID PO SCH (06:42)
[2019-01-09] MEDS: AZACTAM 2 GM in NS 100 ML IV SCH ×3 (06:42→15:46)
[2019-01-09] MEDS: NORCO-7.5 PO PRN (08:09)
[2019-01-09] MEDS: COLACE PO SCH (08:10)
[2019-01-09] MEDS: THERA M PLUS PO SCH (08:10)
[2019-01-09] MEDS: VITAMIN D PO SCH (08:10)
[2019-01-09] MEDS: PERIDEX MT SCH (08:10)
[2019-01-09] MEDS: LEVEMIR SUBQ SCH (08:12)
[2019-01-09] MEDS: GLUCOPHAGE PO SCH (08:12)
[2019-01-09] MEDS: VICTOZA SUBQ SCH (08:12)
[2019-01-09] MEDS: SANTYL OINT TOP SCH (08:12)
--- NOTE | 2019-01-09 11:13 | GENERAL SURGERY PROGRESS NOTE ---
DATE: 01/09/2019 SUBJECTIVE: Doing well, no issues with the wound VAC overnight. No fevers, no tachycardia. LABORATORY: Nothing new this morning other than glucose intermittently dropping low but also alternating high. ASSESSMENT AND PLAN: This is a 73-year-old gentleman with nonhealing wound in his right foot status post excisional debridement and wound VAC placement. He can go home from a surgical standpoint and I will see him in a week. He will continue twice weekly wound VAC changes. Orders have been arranged by Mere, our Wound nurse. Will continue to follow him as an outpatient. cc: MD Ulisses Rao MD
[2019-01-09 12:26] VITALS: BP 115/64
[2019-01-09] MEDS ORDERED: NS 250 ML ONE (12:38)
--- NOTE | 2019-01-09 12:57 | INFECTIOUS DISEASE PROGRESS NO ---
DATE: 01/09/2019 PRESENT ILLNESS: The patient is status post partial amputation and debridement of an infected right foot. A culture from the foot has grown Escherichia coli and micrococcus. MEDICATIONS: The patient has been on p.o. clindamycin and IV aztreonam. PHYSICAL EXAMINATION: Vital Signs: Temperature is 98.4 degrees, pulse 77, respirations 18, blood pressure 111/52. General: This is an elderly, somewhat ill-appearing male. He is in no acute distress. Head, eyes, ears, nose, and throat: He can hear my spoken words and see near objects. He does not have any white patches in his mouth. Neck: No meningismus. Lungs: Clear to auscultation. Cardiovascular: Heart rate is regular. Abdomen: Soft and nontender. Extremities: The patient has the VAC in place. The skin surrounding the wound is not erythematous. Neurologic: The patient is alert, he can move his extremities. He does not have a tremor. ASSESSMENT AND PLAN: The patient has an infected foot, which was debrided and partially amputated at surgery. I discussed the patient with Dr. Sánchez. We agree to send the patient home on IV aztreonam and PO clindamycin for 2 weeks. The patient and his agree with the above plan. LAB AND RADIOLOGY: There is no new radiographic study today. The patient's CBC shows a white count of 6210, hemoglobin 12 and platelet count 415,000. Creatinine is 0.5, GFR is greater than 60. Culture from the patient's foot as mentioned above grew Escherichia coli and micrococcus. COMORBIDITIES: The patient is elderly, he is a diabetic and he has peripheral vascular disease. cc: MD Ulisses Flores MD [facility]
[2019-01-09 13:27] LABS: INR 1.21; PROTIME 15.5 Seconds (11.0-16.0)
[2019-01-09 13:43] LABS: AGAP 12; BUN 11 mg/dL (8-22); CALCIUM 8.9 mg/dL (8.8-10.2); CHLORIDE 97 mmol/L (98-107); COSMO 281; CREATININE 0.4 mg/dL (0.7-1.2); ESTIMATED GFR > 60; GLUCOSE 279 mg/dL (70-104); POTASSIUM 4.1 mmol/L (3.5-5.1); SODIUM 136 mmol/L (136-145); TCO2 27 mmol/L (25-35)
--- NOTE | 2019-01-09 15:55 | PROGRESS NOTE ---
DATE: 01/09/2019 SUBJECTIVE: This patient is status post I and D yesterday due to a nonhealing diabetic foot wound on the right side. He has a previous amputation of the first and second toe; they did an excisional debridement 7 x 4 x 1 cm down to the level of the tendon/bone with wound VAC placement. He seems to be tolerating well the procedure. We will continue with same management. Infectious Disease Department will try to contact Dr. Sánchez to talk about the antibiotics so he can be discharged home. I will not make any changes. OBJECTIVE: Vital Signs: Temperature 98.8 degrees, pulse 77, respiratory rate 18, blood pressure 115/64, oxygen saturation 99 on room air. HEENT: Head normocephalic, no trauma. PERRLA. Neck: Supple. No JVD. No masses. Central trachea. Chest: Clear to auscultation. No wheezing. No rales. Abdomen: Soft, nontender, nondistended. No hepatosplenomegaly. Extremities: No edema, no clubbing, no cyanosis. Right foot has a wound VAC. The first and second toe has been amputated before. I do not see any signs of necrosis and the wound looks fine. LABORATORY: Sodium 136, potassium 4.1, chloride 97, bicarbonate 27. BUN 11, creatinine 4, glucose 279, calcium 8.9. ASSESSMENT AND PLAN: 1. Nonhealing diabetic foot infection, status post debridement. Infectious Disease Department on board, as well as Surgery Department. They will try to discuss the case, so this patient can be discharged home with oral versus intravenous antibiotics. We have a positive culture that showed Escherichia coli and micrococcus species. 2. Type 2 diabetes. I will continue with Levemir. As per the patient, his blood sugar is better controlled at home with the same treatment. During this hospitalization, he states that he has been skipping some meals, and that is why he has been having some hypoglycemia, but he is not having symptoms. So we will continue with same management. cc: Ulisses Cadet MD
[2019-01-09] MEDS ORDERED: LEVEMIR SUBQ SCH (21:00)
--- NOTE | 2019-02-05 20:30 | DISCHARGE SUMMARY ---
ADMISSION DATE: 12/30/2018 DISCHARGE DATE: 01/09/2019 ADMITTING DIAGNOSIS: Necrosis of right second toe and diabetic foot infection. PROCEDURES PERFORMED: On 12/30/2018 was transmetatarsal amputation of the right second toe with excisional debridement of the medial foot wound. HISTORY OF PRESENT ILLNESS: This is a gentleman known to me who has had necrosis of his toe, underwent toe amputation, developed subsequent necrosis of the second toe, needed further amputation and debridement. HOSPITAL COURSE: Patient was admitted on the day of his surgery for above procedure. For details, please see dictated operative note. Postoperatively, he was admitted for antibiotics and ongoing wound care and wound VAC placement. His glucoses were well controlled. He also underwent further excisional debridement of the wound on 01/08/2019, and after that, the wound was clean and felt safe for discharge. MEDICATIONS: Antibiotics per Dr. Phipps with follow up with him. Follow-up with me in a week or two. DISPOSITION: To rehab. DISCHARGE INSTRUCTIONS: Given in written and verbal format. cc: MD Ulisses Rao MD
== END 2019-01-09 17:02 | disposition home health service (06) | DRG 240 ==
LOC: 4N 07:59 → OR 07:59 → OBSVTOIN 11:47
PROVIDERS: ADMIT Internal Medicine; ATTEND Surgery